=== PATIENT | female | born 1955 | race Caucasian/White ===

== ENCOUNTER → 2019-03-29 17:24 | Outpatient (CLI) | payer MEDICARE, SELFPAY | PROVIDERS: Family Provider Family Medicine; PCP Family Medicine; Referring Provider Podiatrist; Visit Provider Podiatrist | DX: L03.031 Cellulitis of right toe (principal) | CPT/HCPCS: 87070; 87075; 87077; 87186; 87205 ==

== ENCOUNTER → 2019-06-11 15:27 | Outpatient (CLI) | payer MEDICARE, SELFPAY ==
[2019-06-11 14:06] VITALS: BMI 37.6
--- NOTE | 2019-06-11 15:31 | RAD_ITS ---
STUDY: X-RAY CHEST REASON FOR EXAM: Female, 63 years old. Chest pain. TECHNIQUE: Frontal and lateral views of the chest. COMPARISON: February 06, 2015 FINDINGS: Stable mild hyperexpansion. There is no demonstrated pleural abnormality. Cardiomegaly unchanged. Normal mediastinum and david. Normal visualized pulmonary arteries. Normal visualized aortic arch and descending thoracic aorta. Stable thoracolumbar spondylosis. Normal visualized ribs, clavicles, and shoulders. There is no demonstrated abnormality of the visualized soft tissue structures of the upper abdomen. RAD/Chest PA and Lateral IMPRESSION: Stable chest with no acute superimposed finding. Electronically Signed: Supa Bush MD at 17:42 EST , Service support ,
[2019-06-11 17:58] LABS: International Normalized Ratio 1.1; Partial Thromboplast Time 32.7 Seconds (24.1-36.2)
[2019-06-11 18:01] LABS: Absolute Lymphocyte Count 4.36 X10^3/uL (0.83-4.51); Absolute Neutrophil Count 6.4 X10^3/uL (2.0-7.7); Anion Gap 10 (5-15); BUN 18 mg/dL (7-18); BUN/Creat Ratio 14.6 RATIO (10-20); Basophil# 0.13 X10^3/uL; Basophil% 1.1 % (0-1); Calcium,Total 9.7 mg/dL (8.5-10.1); Chloride 106 mmol/L (98-107); Creatinine, Serum 1.23 mg/dL (0.55-1.02); EST Glomerular Filtration Rate 47 mL/min (>60); Eosinophil# 0.58 X10^3/uL; Eosinophils% 4.7 % (0-5); Est Glom Filt Rate - Afr Amer 56 mL/min (>60); Glucose 175 mg/dL (74-106); Hematocrit 39.9 % (37-47); Hemoglobin 12.4 g/dL (12.0-15.0); Lymphocyte # 4.36 X10^3/ul (4.0); Lymphocyte % 35.6 % (19-41); Mean Corp Hgb Conc 31.1 g/dL (32-36); Mean Corpuscular Hgb 28.2 pg (27.0-32.0); Mean Corpuscular Volume 90.7 fL (81-99); Monocyte# 0.72 X10^3/uL; Monocyte% 5.9 % (0-10); NRBC Flagged by Analyzer 0 % (0-5); Neutrophil # 6.43 X10^3/uL (2.7-7.7); Neutrophil % 52.5 % (47-70); Platelet Count 246 K/mm3 (150-450); Potassium 4.4 mmol/L (3.5-5.1); RBC Distribution Width CV 13.3 % (11.6-14.6); RBC Distribution Width SD 44.4 fl (35.1-43.9); Sodium Level 139 mmol/L (136-145); White Blood Count 12.3 K/mm3 (4.4-11.0)
== END ==
PROVIDERS: Family Provider Family Medicine; PCP Family Medicine; Referring Provider Specialist; Visit Provider Specialist
DX: I35.0 Nonrheumatic aortic (valve) stenosis (principal); I25.2 Old myocardial infarction; R07.9 Chest pain, unspecified; I25.110 Atherosclerotic heart disease of native coronary artery with unstable angina pectoris; I11.0 Hypertensive heart disease with heart failure
CPT/HCPCS: 36415; 71046; 80048; 85025; 85610; 85730

== ENCOUNTER → 2019-06-15 13:42 | Outpatient (CLI) | payer MEDICARE, SELFPAY ==
[2019-06-11 14:06] VITALS: BMI 37.6
--- NOTE | 2019-06-15 13:44 | ECHOCS_ITS ---
Reason For Study: Aortic Stenosis Procedure This was a 2D Doppler, Color Flow transthoracic echocardiogram. The study was technically difficult. Contrast injection was performed. Exam performed in department. Left Ventricle Normal LV size. The estimated ejection fraction is 50 %. Diastolic function is indeterminate. apical hypokinesis. Right Ventricle Normal RV size. Normal systolic function. Atria Normal left atrium. Normal right atrium. No doppler evidence for ASD. Mitral Valve There is mild mitral annular calcification. There is no mitral valve stenosis. No mitral valve insufficiency. Tricuspid Valve There is no tricuspid stenosis. Mild tricuspid valve insufficiency. Pulmonary artery systolic pressure is 25 mmHg. Aortic Valve Moderate diffuse aortic valve thickening. Mild aortic stenosis. No aortic valve insufficiency. Pulmonic Valve There is no pulmonic valvular stenosis. Trivial pulmonic valve insufficiency. Great Vessels Normal aortic root. Pericardium/Pleural No pericardial effusion. Medication 22 gauge I.V. with prn adaptor inserted into left arm. Diluted definity 3ml given slow IV push to enhance endocardial definition. MMode/2D Measurements & Calculations LVIDd: 4.7 cm IVSd: 1.5 cm LVOT diam: 2.0 cm LVIDs: 3.0 cm LVPWd: 1.0 cm RVDd: 4.0 cm FS: 36.0 % LVOT area: 3.0 cm2 Ao root diam: 3.4 cm LAV(MOD-bp): 37.7 ml Aortic Valve Planimetry: 0.97 cm2 LA dimension: 4.1 cm LAV(MOD-bp) Indexed: 19.4 ml/m2 LAV(MOD-sp2): 33.4 ml LAV(MOD-sp4): 40.0 ml LA A4 area: 16.5 cm2 RA A4 area: 15.0 cm2 Time Measurements MV dec time: 0.23 sec Doppler Measurements & Calculations MV E max demar: 81.0 cm/sec Lat Peak E' Demar: 5.8 cm/sec Med Peak E' Demar: 5.6 cm/sec MV A max demar: 103.7 cm/sec E/E' lat: 14.0 E/E' med: 14.4 MV E/A: 0.78 MV V2 max: 108.8 cm/sec MV P1/2t max demar: 100.2 cm/sec Ao V2 max: 258.6 cm/sec MV max P.7 mmHg MV P1/2t: 98.6 msec Ao max P.8 mmHg MV V2 mean: 67.4 cm/sec MV dec slope: 297.4 cm/sec2 Ao V2 mean: 169.1 cm/sec MV mean P.1 mmHg Ao mean P.5 mmHg MV V2 VTI: 30.9 cm MVA(P1/2t): 2.2 cm2 Ao V2 VTI: 52.4 cm MVA(VTI): 2.0 cm2 RAMIRO(I,D): 1.2 cm2 RAMIRO(V,D): 1.2 cm2 LV V1 max: 104.6 cm/sec SV(LVOT): 61.5 ml PA V2 max: 107.9 cm/sec LV V1 max P.4 mmHg LV V1 mean P.0 mmHg LV V1 mean: 65.2 cm/sec LV V1 VTI: 20.4 cm TR max demar: 227.7 cm/sec TR max P.7 mmHg Interpretation Summary The estimated ejection fraction is 50 %. Diastolic function is indeterminate. apical hypokinesis Mild tricuspid valve insufficiency. Mild aortic stenosis. Moderate diffuse aortic valve thickening. The study was technically difficult. Diluted definity 3ml given slow IV push to enhance endocardial definition. The study was technically difficult. Ordering Physician: Warren Bruno Referring Physician: Warren Bruno Performed By: Goldy Samayoa [facility]
== END ==
PROVIDERS: Family Provider Family Medicine; PCP Family Medicine; Referring Provider Specialist; Visit Provider Specialist
DX: I35.0 Nonrheumatic aortic (valve) stenosis (principal); I25.10 Atherosclerotic heart disease of native coronary artery without angina pectoris; I10 Essential (primary) hypertension; R01.1 Cardiac murmur, unspecified; I25.2 Old myocardial infarction
CPT/HCPCS: 93306; Q9957; A4216; C8929

== ENCOUNTER 2019-06-21 10:40 | Inpatient (IN) | payer MEDICARE, SELFPAY ==
[2019-06-11 14:06] VITALS: BMI 37.6
[2019-06-20 09:08] VITALS: BMI 38.2
[2019-06-21] VITALS (15 sets, daily range): BP systolic 138–156; BP diastolic 62–76; PULSE 71–87; RESP 14–18; TEMP 36.6–36.7; O2SAT 95–99; BMI 38.2
[2019-06-21] MEDS: 0.9% Normal Saline 1,000 ML 80 ML IV (11:01)
--- NOTE | 2019-06-21 15:39 | PN_ITS ---
Progress Note History of Present Illness 63-year-old female with past medical history of hypertension, diabetes, dyslipidemia, coronary artery disease status post ACS in 2008 that was due to small severely diseased diagonal branch that was treated medically. The diagonal branch was 100% occluded. Her other coronary arteries had mild disease. Patient had been doing well since then till about 4 to 6 months back when she developed chest pain on exertion. The discomfort has been progressive and now with just walking about 50 feet she gets chest discomfort. Patient also had mild aortic stenosis by echo in 2016. Patient underwent coronary angiography which revealed multivessel coronary artery disease and at least moderate aortic stenosis. We are admitting the patient due to the severity of the underlying CAD. She also has been accepted by Dr. Velasquez at [facility] and will be transferred there for CABG and AVR when bed is available. She will get a 2D echo over there. She is currently doing well. Allergies bee pollen Allergy (Verified 06/11/19 14:07) Anaphylaxis Medications Levothyroxine [Synthroid] 100 mcg PO DAILY 10/17/13 [History Confirmed 06/11/19] Metformin HCl [Glucophage] 1,000 mg PO BID 10/17/13 [History Confirmed 06/11/19] Nitroglycerin (INPATIENT USE) [Nitrostat] 0.4 mg SUBLINGUAL Q5M PRN 12/13/13 [History Confirmed 06/11/19] Rosuvastatin Calcium [Crestor] 10 mg PO DAILY 12/13/13 [History Confirmed 06/11/19] Atenolol [Tenormin (beta aviva)] 50 mg PO DAILY 02/14/15 [History Confirmed 06/11/19] Losartan Potassium [Cozaar] 50 mg PO BID 02/14/15 [History Confirmed 06/11/19] Sumatriptan Succinate [Imitrex] 50 mg PO .X1 PRN 03/18/16 [History Confirmed 06/11/19] epinephrine 0.3 mg/0.3 mL injection, auto-injector 0.3 ml IM ONCE PRN 05/31/19 [History Confirmed 06/11/19] fluticasone propionate 50 mcg/actuation nasal spray,suspension 2 spray INTRANASAL DAILY 05/31/19 [History Confirmed 06/11/19] insulin NPH-regular 70-30 U-100 insulin 100 unit/mL subcutaneous pen 45 unit SC QAM ml 05/31/19 [History Confirmed 06/11/19] insulin NPH-regular 70-30 U-100 insulin 100 unit/mL subcutaneous pen 60 unit SC QPM ml 05/31/19 [History Confirmed 06/11/19] naproxen 500 mg tablet 500 mg PO BID PRN 05/31/19 [History Confirmed 06/11/19] nystatin-triamcinolone 100,000 unit/gram-0.1 % topical ointment 1 applic TOPICAL BID PRN 05/31/19 [History Confirmed 06/11/19] omeprazole 20 mg capsule,delayed release 20 mg PO DAILY 05/31/19 [History Confirmed 06/11/19] triamcinolone acetonide 0.1 % topical cream 1 applic TOPICAL BID 05/31/19 [History Confirmed 06/11/19] ergocalciferol (vitamin D2) 50,000 unit capsule 50,000 unit PO QWEEK 06/11/19 [History Confirmed 06/11/19] [facility] Medical History CKD (chronic kidney disease), stage III (Chronic) Hyperlipidemia (Chronic) Atherosclerosis of coronary artery of [place] heart without angina pectoris (Chronic) Essential hypertension (Chronic) Diabetic foot infection (Resolved) Staph aureus infection (Suspected) Osteomyelitis (Resolved) Breast cancer (Chronic) Neuropathy (Chronic) History of MO (myocardial infarction) (Chronic) History of anxiety (Chronic) History of diabetic retinopathy (Chronic) History of migraine headaches (Chronic) History of vitamin D deficiency (Chronic) Hypothyroidism (Chronic) Obesity (Chronic) Type 2 diabetes mellitus without complication (Chronic) Surgical History 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) History of section (Resolved) History of cholecystectomy (Resolved) History of colonoscopy (Resolved ~06/15/17) History of esophagogastroduodenoscopy (EGD) (Resolved ~06/15/17) History of partial mastectomy of right breast (Resolved ~2009) History of repair of ACL (Resolved) Family History Mother CAD (coronary artery disease) Diabetes Father CAD (coronary artery disease) Sister CAD (coronary artery disease) COPD (chronic obstructive pulmonary disease) Social History (Updated 06/11/19 @ 15:08 by Warren Bruno MD) Smoking Status: Never smoker second hand exposure: Yes alcohol intake: current alcohol intake frequency: holidays/special occasions only Alcohol type: wine substance use type: does not use caffeine: Yes Type: coffee Number of servings: 2 ROS Const Const: Positive for fatigue and weakness; negative for headache(s), frequent falls, difficulty sleeping or excessive sweating Eyes Eyes: Negative for loss of peripheral vision, transient loss of vision, blurry vision, double vision or tunnel vision ENT ENT: Positive for balance problems; negative for headache(s), dizziness or Nosebleed/epistaxis Cardio Chest Pain: Yes Frequency: daily Character: tightness, other (heaviness) Onset: other (activity) Location: mid sternal Duration: hours Relieving: rest, other (nitro) Palpitations: No Edema: None Muscle aches with walking: None Resp Respiratory: Positive for SOB with activity; negative for SOB at rest, SOB orthopnea\SOB lying down, Cough or paroxysmal nocturnal dyspnea GI GI: Negative nausea, vomiting, heartburn or black,tarry stools : Negative for hematuria Musc Musc: Positive for joint pain and balance problems; negative for muscle aches/ myalgia or muscle weakness Skin Skin: Negative non-healing lesions, rash or unusual bruising Neuro Neuro: Positive for lightheadedness, weakness and vertigo; negative for dizziness, near syncope, syncope, frequent falls, headache(s), blurry vision, double vision or lack of coordination Josias Hematologic/Lymphatic: Negative for easy bleeding or easy bruising Endo Endo: Positive for fatigue; negative for excessive sweating or increased thirst/drinking Psych Psych: Negative for anxiety or depression Allergy Allergy/Immunology: Negative for hives, Negative for rash Cardiology Exam Const Appearance: cooperative; negative acute distress Nutritional Appearance: well nourished Head Head: normocephalic and atraumatic Ears: hearing grossly normal bilaterally Nose: external nose normal Face and Sinus: face symmetric Mouth: moist mucous membranes Teeth and gingiva: fair dentition Eyes General: appearance normal, both eyes and all related structures Eyelids: eyelids normal Conjunctivae: conjunctivae normal Neck Neck: trachea midline and no JVD Chest Chest inspection: symmetric chest movement; negative pursed lip breathing Auscultation: Bilateral: Clear to Auscultation Cardio Rate: regular rate Rhythm: regular rhythm Heart sounds: S1 normal and diminished A2 Murmur: Grade 3/6 and holosystolic GI GI: normal to inspection Neuro General: alert, awake and oriented x3 Gait: Negative ataxic Skin Skin: no rashes or lesions noted; negative atrophy or jaundice Extremities Pulses: Normal: Right Posterior Tibial Pulse, Left Posterior Tibial Pulse Lower Extremity Edema: None: Bilateral Musculoskel Musculoskeletal: No joint tenderness Psych Psychological: normal affect Assessment & Plan 1. Coronary artery disease involving [place] coronary artery of [place] heart with unstable angina pectoris I25.110 Plan Multivessel coronary artery disease. We will refer her for CABG. 2. Aortic valve stenosis, etiology of cardiac valve disease unspecified I35.0 2D echo will be checked at [facility]. Patient will likely need aVR as well. She has at least moderate attic stenosis by pullback gradient on cath. 3. Hyperlipidemia, unspecified hyperlipidemia type E78.5 Plan Continue Crestor. 4. Essential hypertension I10 Plan Continue present management. STROKE Vital Signs/Narrative: Vital Signs Pulse Resp BP Pulse Ox 06/21/19 12:10 78 16 156/74 H 99 06/21/19 11:59 80 06/21/19 11:45 81 16 156/67 H 99
--- NOTE | 2019-06-21 16:07 | CL.D_ITS ---
Patient Name: ABE SARAVIA Study Date: 06/21/2019 Performing: Jordy Bruno MD Ht: 62 inches 157 cm : 1955 Wt: 205.7 lbs 93.16 kg Age: 63 Gender: female BSA: 1.93 PROCEDURE(S) PERFORMED [id number]/COR/LV CLINICAL PROFILE AND INDICATIONS Indications: Worsening Angina Heart Failure: None Stress/Imaging Stress/Image Study Performed: No CAD Presentations: Unstable angina. CONCLUSIONS Multivessel CAD. Probably moderate . EF is around 40%. RECOMMENDATIONS Surgery consult for coronary revascularization and AVR DESCRIPTION OF PROCEDURE The patient arrived to the procedure lab. The risks and benefits of the procedure as well as a full d escription of our services here and current unavailability of surgical backup were fully explained to the patient and/or their significant other prior to the catheterization. The Timeout was completed, verifying the correct patient and procedure. The patient's procedural site was prepped and draped in the usual fashion. Local anesthetic was given subcutaneously to right radial region with Lidocaine 2% . Using a modified Seldinger technique, arterial access was obtained via the right radial artery, a 6 Fr sheath was inserted. Left Coronary Artery selective angiography was performed in multiple views u sing a 5 Fr. JL3.5 catheter. Left Ventriculography was performed in LÓPEZ projection using a 5 Fr. JR 4 . LV to AO pullback pressures were then recorded. Right Coronary Artery selective angiography was the n performed in multiple views using a 5 Fr. JR 4 catheter.The arterial sheath was pulled and a TR Band was applied for hemostasis CORONARY ANGIOGRAPHY DOMINANCE: Left Dominant LEFT HEART ASSESSMENT Left Ventricular Ejection Fraction: by LV Gram 40 % Anterolateral Hypokinesis - Moderate LEFT MAIN: Angiographically normal LEFT ANTERIOR DESCENDING ARTERY: PROX LAD: 60 % Stenosis MID LAD: 99 % Stenosis DIAGONAL 1: Ostial - 90 % Stenosis DIAGONAL 2: Proximal - is occluded CIRCUMFLEX ARTERY: DISTAL CIRC: 80 % Stenosis OM 1: Proximal - 80 % Stenosis, Distal - 70 % Stenosis RIGHT CORONARY ARTERY: PROX RCA: 90 % Stenosis VALVE FINDINGS: Aortic Valve Stenosis - moderate No Mitral Insufficency COMPLICATIONS No Complications PROCEDURE MEDICATIONS Fentanyl 50 mcg IV Versed 1 mg IV Oxygen: 2 L/min via nasal cannula Heparin given IA 06/21/2019 09:47:59 Verapamil 2.5mg, Ntg 100mcgs, 3000 units of Heparin given IA 06/21/2019 09:47:59 SUMMARY OF HEMODYNAMIC DATA Time AIR REST ECG 09:06:58 AO 100/57 (75) SA 09:51:07 LV 156/-9, 17 10:01:45 LV 156/-8, 17 10:01:51 LV 147/0, 25 10:03:22 LV 154/-3, 30 10:03:41 LVp 156/-3, 26 10:03:51 AOp 130/57 (85) 10:03:56 Signed By Jordy Bruno MD On 06/21/2019 16:07:18 Jordy Bruno MD
[2019-06-21 17:46] LABS: Bedside Glucose 158 mg/dL (70-110)
[2019-06-21] MEDS: Insulin Human 75/25 Kwickpen 60 UNIT SC (21:15)
[2019-06-21] MEDS: Losartan Potassium 50 MG Tablet PO (21:16)
[2019-06-21] MEDS: Atorvastatin Calcium 20 MG Tablet PO (21:16)
[2019-06-21 22:00] LABS: Bedside Glucose 298 mg/dL (70-110)
[2019-06-22 03:00] VITALS: PULSE 76
[2019-06-22 03:05] VITALS: BP 135/50; PULSE 77; RESP 18; TEMP 36.6; O2SAT 95
[2019-06-22] MEDS: Levothyroxine 100 MCG Tablet PO (05:34)
[2019-06-22] MEDS: Losartan Potassium 50 MG Tablet PO (08:48)
[2019-06-22] MEDS: Pantoprazole Sodium 20 MG Tablet PO (08:48)
[2019-06-22] MEDS: Atenolol 50 MG Tablet PO (08:49)
[2019-06-22] MEDS: Insulin Human 75/25 Kwickpen 45 UNIT SC (08:49)
[2019-06-22 09:05] VITALS: BP 147/71; PULSE 82; RESP 16; TEMP 36.6; O2SAT 97
[2019-06-22 15:00] VITALS: BP 137/73; PULSE 82; RESP 18; TEMP 36.6; O2SAT 97
[2019-06-22 15:14] VITALS: PULSE 82
--- NOTE | 2019-06-22 15:22 | NURSING ---
attempted to call nadira perez, to give update on tx. no answer. left vm with this RN extension
--- NOTE | 2019-06-22 15:23 | NURSING ---
verbal report given to OLGA silverman at [facility]
--- NOTE | 2019-06-22 16:58 | PCM.PN.BLA ---
Progress Note Patient has been doing fairly well overnight. She does get chest discomfort with ambulation. She is awaiting transfer to [facility]. STROKE Vital Signs/Narrative: Vital Signs Temp Pulse Resp BP Pulse Ox 06/22/19 15:14 82 06/22/19 15:00 97.9 F 82 18 137/73 H 97
== END 2019-06-22 17:00 | disposition short-term general hospital (02) | DRG 287 ==
LOC: PCU 16:15
PROVIDERS: Admitting Provider Specialist; Family Provider Family Medicine; PCP Family Medicine; Referring Provider Specialist; Visit Provider Specialist
DX: I25.110 Atherosclerotic heart disease of native coronary artery with unstable angina pectoris (principal); E78.5 Hyperlipidemia, unspecified; I10 Essential (primary) hypertension; I35.0 Nonrheumatic aortic (valve) stenosis; Z77.22 Contact with and (suspected) exposure to environmental tobacco smoke (acute) (chronic)
CPT/HCPCS: 82962; 93458; 99152; 99153; J7030; J7040; C1769; C1894; Q9967

== ENCOUNTER → 2019-08-22 | Outpatient (CLI) | payer MEDICARE, SELFPAY ==
[2019-08-21 10:59] VITALS: BMI 37.6
== END | disposition home or self-care (01) ==
PROVIDERS: PCP Family Medicine; Referring Provider Podiatrist; Visit Provider Podiatrist
DX: L03.031 Cellulitis of right toe (principal)
CPT/HCPCS: 87070; 87075; 87077; 87186; 87205

== ENCOUNTER → 2020-12-19 10:09 | Outpatient (CLI) | payer MEDICARE, SELFPAY ==
[2020-12-19 08:52] VITALS: BMI 43.5
[2020-12-19 11:56] LABS: Anion Gap 7 (5-15); BUN 18 mg/dL (7-18); BUN/Creat Ratio 14.1 RATIO (10-20); Calcium,Total 9.3 mg/dL (8.5-10.1); Chloride 104 mmol/L (98-107); Creatinine, Serum 1.28 mg/dL (0.55-1.02); EST Glomerular Filtration Rate 44 mL/min (>60); Est Glom Filt Rate - Afr Amer 54 mL/min (>60); Glucose 175 mg/dL (74-106); Potassium 4.2 mmol/L (3.5-5.1); Sodium Level 138 mmol/L (136-145)
[2020-12-19 11:57] LABS: BNP,B-Type NATRIURETIC PEPTIDE 549.9 pg/mL (0-100)
== END ==
PROVIDERS: PCP Family Medicine; Referring Provider Nurse Practitioner Family; Visit Provider Nurse Practitioner Family
DX: E78.5 Hyperlipidemia, unspecified (principal); R06.00 Dyspnea, unspecified; I10 Essential (primary) hypertension; I35.0 Nonrheumatic aortic (valve) stenosis; I48.91 Unspecified atrial fibrillation; Z95.1 Presence of aortocoronary bypass graft; Z98.890 Other specified postprocedural states
CPT/HCPCS: 36415; 80048; 83880

== ENCOUNTER → 2020-12-26 10:53 | Outpatient (CLI) | payer MEDICARE, SELFPAY ==
[2020-12-19 08:52] VITALS: BMI 43.5
--- NOTE | 2020-12-26 10:56 | ECHOCS_ITS ---
Reason For Study: Dyspnea/SOB Procedure This was a 2D Doppler, Color Flow transthoracic echocardiogram. The study was technically difficult. Contrast injection was performed. Exam performed in department. Left Ventricle Normal LV size. Left ventricular systolic function is normal. The estimated ejection fraction is 60 %. Stage 2 diastolic dysfunction. No regional wall motion abnormalities noted. Right Ventricle Normal RV size. Normal systolic function. Atria Normal left atrium. Normal right atrium. Mitral Valve There is mild mitral annular calcification. Mild (1+) mitral valve insufficiency. Tricuspid Valve Normal tricuspid valve. Mild (1+) tricuspid valve insufficiency. Pulmonary artery systolic pressure is 35 mmHg. Aortic Valve Trisinus/trileaflet aortic valve. Moderate focal aortic valve calcification. Peak aortic valve gradient 41 mmHg. Mean aortic valve gradient 21 mmHg. Moderate aortic stenosis. Calculated aortic valve area (continuity equation) is 1.1 cm2. Pulmonic Valve Normal pulmonic valve. Great Vessels Normal aortic root. The pulmonary artery is normal size. Normal inferior vena cava. Pericardium/Pleural No pericardial effusion. Medication 22 gauge I.V. with prn adaptor inserted into left arm. Diluted definity 2ml given slow IV push to enhance endocardial definition. MMode/2D Measurements & Calculations LVIDd: 4.9 cm IVSd: 1.1 cm LVOT diam: 2.0 cm LVIDs: 2.9 cm LVPWd: 1.1 cm FS: 40.8 % LVOT area: 3.1 cm2 LA dimension: 4.9 cm LAV(MOD-bp): 57.9 ml LA A4 area: 20.9 cm2 LAV(MOD-bp) Indexed: 28.1 ml/m2 LAV(MOD-sp2): 50.1 ml LAV(MOD-sp4): 59.3 ml RA A4 area: 13.7 cm2 Time Measurements MV dec time: 0.22 sec Doppler Measurements & Calculations MV E max demar: 130.9 cm/sec Lat Peak E' Demar: 11.1 cm/sec Med Peak E' Demar: 4.8 cm/sec MV A max demar: 71.8 cm/sec E/E' lat: 11.8 E/E' med: 27.0 MV E/A: 1.8 MV V2 max: 125.5 cm/sec MV P1/2t max demar: 127.5 cm/sec Ao V2 max: 320.1 cm/sec MV max P.3 mmHg MV P1/2t: 115.1 msec Ao max P.1 mmHg MV V2 mean: 63.8 cm/sec MV dec slope: 324.5 cm/sec2 Ao V2 mean: 214.4 cm/sec MV mean P.0 mmHg Ao mean P.2 mmHg MV V2 VTI: 43.2 cm MVA(P1/2t): 1.9 cm2 Ao V2 VTI: 72.5 cm MVA(VTI): 1.9 cm2 RAMIRO(I,D): 1.1 cm2 RAMIRO(V,D): 1.1 cm2 LV V1 max: 118.3 cm/sec SV(LVOT): 80.7 ml PA V2 max: 131.9 cm/sec LV V1 max P.6 mmHg LV V1 mean P.8 mmHg LV V1 mean: 77.5 cm/sec LV V1 VTI: 26.0 cm TR max demar: 278.8 cm/sec TR max P.1 mmHg ECHO/Echo Complete W/ Contrast Interpretation Summary Normal LV size. Left ventricular systolic function is normal. The estimated ejection fraction is 60 %. Stage 2 diastolic dysfunction. Moderate aortic stenosis. Moderate focal aortic valve calcification. Contrast injection was performed. Ordering Physician: Elijah Zapata Referring Physician: MD Tom Jeffery Performed By: Goldy Samayoa RCS
== END ==
PROVIDERS: PCP Family Medicine; Referring Provider Nurse Practitioner Family; Visit Provider Nurse Practitioner Family
DX: I25.10 Atherosclerotic heart disease of native coronary artery without angina pectoris (principal)
CPT/HCPCS: 93306; Q9957; A4216; C8929; J3490

== ENCOUNTER 2021-02-04 12:00 | Emergency (ER) | payer MEDICARE, SELFPAY ==
[2021-01-16 13:35] VITALS: BMI 44.8
[2021-02-04 12:00] VITALS: BP 171/69; PULSE 57; RESP 18; TEMP 36.6; O2SAT 97; BMI 45.7
--- NOTE | 2021-02-04 12:27 | EKG12_ITS ---
Test Reason : SOB Blood Pressure : / mmHG Vent. Rate : 052 BPM Atrial Rate : 052 BPM P-R Int : 218 ms QRS Dur : 134 ms QT Int : 486 ms P-R-T Axes : 037 -48 096 degrees QTc Int : 451 ms Sinus bradycardia with 1st degree A-V block Left axis deviation Right bundle branch block Left ventricular hypertrophy with repolarization abnormality Abnormal ECG Confirmed by LEANNE GUTIÉRREZ, ELEAZAR ([id number]), scientific publications editor FILI GERARDO ([id number]) on 02/06/2021 10:50:58 AM Referred By: RADHA Confirmed By:ELEAZAR PERDOMO MD
--- NOTE | 2021-02-04 12:27 | RAD_ITS ---
STUDY: X-RAY CHEST REASON FOR EXAM: Female, 65 years old. Dyspnea TECHNIQUE: Single AP portable view of the chest. COMPARISON: Comparison is made with prior study dated 06/11/2019. FINDINGS: EKG electrodes are seen. There is evidence of vascular congestion and mild CHF. There is no demonstrated pleural abnormality. Sternal cerclage wires are present from a prior sternotomy. Mild cardiomegaly. Normal mediastinum and david. Normal visualized pulmonary arteries. There is atherosclerotic calcification of the aortic arch with tortuosity. Normal visualized thoracic spine. There is degenerative osteoarthritis of the bilateral shoulders. There is no demonstrated abnormality of the visualized soft tissue structures of the upper abdomen. RAD/Chest 1 View (Portable) IMPRESSION: Mild cardiomegaly and CHF. Electronically Signed: Chris Corral MD at 13:55 EDT , Service support ,
[2021-02-04 12:42] VITALS: O2SAT 94
[2021-02-04 12:53] LABS: Absolute Lymphocyte Count 1.03 X10^3/uL (0.83-4.51); Absolute Neutrophil Count 5.4 X10^3/uL (2.0-7.7); Basophil# 0.07 X10^3/uL; Eosinophil# 0.25 X10^3/uL; Eosinophils% 3.4 % (0-5); Hematocrit 38.2 % (37-47); Hemoglobin 11.5 g/dL (12.0-15.0); Lymphocyte # 1.03 X10^3/ul (0.83-4.51); Lymphocyte % 14.1 % (19-41); Mean Corp Hgb Conc 30.1 g/dL (32-36); Mean Corpuscular Hgb 27.3 pg (27.0-32.0); Mean Corpuscular Volume 90.7 fL (81-99); Mean Platelet Vol. 12.5 fl (6.2-12.0); Monocyte# 0.53 X10^3/uL; Monocyte% 7.3 % (0-10); NRBC Flagged by Analyzer 0 % (0-5); Neutrophil # 5.37 X10^3/uL (2.7-7.7); Neutrophil % 73.7 % (47-70); Platelet Count 201 K/mm3 (150-450); RBC Distribution Width CV 16.1 % (11.6-14.6); RBC Distribution Width SD 53.6 fl (35.1-43.9); Red Blood Count 4.21 M/mm3 (4.2-5.4); White Blood Count 7.3 K/mm3 (4.4-11.0)
[2021-02-04 13:06] LABS: Anion Gap 8 (5-15); BUN 22 mg/dL (7-18); BUN/Creat Ratio 15.3 RATIO (10-20); Calcium,Total 9.3 mg/dL (8.5-10.1); Chloride 104 mmol/L (98-107); Creatinine, Serum 1.44 mg/dL (0.55-1.02); EST Glomerular Filtration Rate 39 mL/min (>60); Est Glom Filt Rate - Afr Amer 47 mL/min (>60); Estimated Creatinine Clearance 29.98 ml/min; Glucose 150 mg/dL (74-106); Potassium 4.2 mmol/L (3.5-5.1); Sodium Level 138 mmol/L (136-145); Troponin-I HS 23.9 pg/mL (3.0-53.7)
[2021-02-04 13:09] LABS: BNP,B-Type NATRIURETIC PEPTIDE 436.2 pg/mL (0-100)
--- NOTE | 2021-02-04 13:22 | EDS_ITS ---
HPI History of Present Illness Chief Complaint: General Illness Narrative Narrative: 65-year-old female presenting with shortness of breath. She states is been going on for about 6 months. She states she has a history of atrial fibrillation and is anticoagulated on Eliquis. She has a history of CABG, aortic stenosis, CKD, hypertension. Patient states that she has seen her primary care for this. She has had outpatient echocardiogram which was normal. Patient states that she does have to sit up in bed at night to sleep but she states it is not because she is orthopneic. She does have dyspnea on exertion. She denies fever, chills, cough. She does state that she noted today prior to coming that she had some mild right breast pain underneath her right breast. She did not notice this before today. Patient states she has history of breast cancer in the past. [facility] Medical History Aortic stenosis Atherosclerosis of coronary artery of [place] heart without angina pectoris Atrial fibrillation with RVR Breast cancer Cervical dystonia CKD (chronic kidney disease), stage III Diabetic foot infection Essential hypertension History of anxiety History of diabetic retinopathy History of [place] (myocardial infarction) History of migraine headaches History of vitamin D deficiency Hyperlipidemia Hypothyroidism Neuropathy Obesity Osteomyelitis Staph aureus infection Type 2 diabetes mellitus without complication Home Medications levothyroxine 100 mcg PO DAILY 10/17/13 [History Last Taken 06/21/19] rosuvastatin 10 mg PO DAILY 12/13/13 [History Last Taken 03/18/16] epinephrine 0.3 mg/0.3 mL injection, auto-injector 0.3 ml IM ONCE PRN 05/31/19 [History Last Taken Unknown] acetaminophen 500 mg tablet 1,000 mg PO TID PRN tab 08/21/19 [History Last Taken Unknown] apixaban 5 mg tablet 5 mg PO BID 08/21/19 [History Last Taken Unknown] aspirin 81 mg chewable tablet 81 mg PO DAILY 08/21/19 [History Last Taken Unknown] insulin glargine 100 unit/mL (3 mL) subcutaneous pen 62 unit SC DAILY ml 08/21/19 [History Last Taken Unknown] insulin lispro 100 unit/mL subcutaneous pen 30 - 35 unit SC QAC ml 08/21/19 [History Last Taken Unknown] metoprolol tartrate 50 mg tablet 75 mg PO Q12H tab 08/21/19 [History Last Taken Unknown] polyethylene glycol 3350 17 gram oral powder packet 17 g PO DAILY PRN 08/21/19 [History Last Taken Unknown] amlodipine 2.5 mg tablet 5 mg PO DAILY #30 tab 01/16/21 [Rx Last Taken Unknown] amiodarone 200 mg PO DAILY 02/04/21 [History Last Taken Unknown] furosemide 20 mg PO DAILY 02/04/21 [History Last Taken Unknown] Allergy/AdvReac Type Severity Reaction Status Date / Time bee pollen Allergy Anaphylaxis Verified 02/04/21 12:03 Family History Mother CAD (coronary artery disease) Diabetes Father CAD (coronary artery disease) Sister CAD (coronary artery disease) COPD (chronic obstructive pulmonary disease) Brother CAD (coronary artery disease) CABG X 3 Surgical History History of section History of cholecystectomy History of colonoscopy (~06/15/17) History of coronary artery bypass graft (06/26/19) History of esophagogastroduodenoscopy (EGD) (~06/15/17) History of left heart catheterization (~06/21/19) History of loop recorder (07/06/19) History of partial mastectomy of right breast (~2009) History of repair of ACL Status post amputation of toe of left foot (~2015) Social History (Reviewed 01/16/21 @ 13:30 by Elijah Zapata WIRE TURNING MACHINE OPERATOR, WIRE TURNING MACHINE OPERATOR-C) Smoking Status: Never smoker second hand exposure: Yes alcohol intake: current alcohol intake frequency: holidays/special occasions only Alcohol type: wine substance use type: does not use caffeine: Yes Type: coffee Number of servings: 2 ROS ROS ED Constitutional Constitutional ED: Denies chills or fever(s) Eyes Eyes: Denies blurry vision or diplopia ENT ENT ED: Denies rhinorrhea or sore throat Cardiovascular Cardiovascular: Reports other Details: Right-sided pain under breast Respiratory/Chest Respiratory/Chest: Reports dyspnea and dyspnea on exertion; Denies cough Gastrointestinal Gastrointestinal: Denies abdominal pain, nausea or vomiting Genitourinary Genitourinary ED: Denies dysuria or hematuria Musculoskeletal Musculoskeletal: Denies arthralgias or myalgias EXAM Physical Exam Const Vital Signs: 02/04/21 12:00 02/04/21 12:21 02/04/21 12:42 Temperature 97.8 F Temperature Source Temporal Pulse Rate 57 L Respiratory Rate 18 Respiratory Effort Short of Breath Respiratory Pattern Normal Blood Pressure 171/69 H Blood Pressure Mean 103 Pulse Ox 97 94 Oxygen Delivery Method Room Air Room Air 02/04/21 14:05 02/04/21 14:36 Temperature Temperature Source Pulse Rate 62 54 L Respiratory Rate 24 H 22 H Respiratory Effort Respiratory Pattern Blood Pressure 153/48 H 130/62 H Blood Pressure Mean 83 Pulse Ox 94 97 Oxygen Delivery Method Room Air Positive obese General Appearance ED: NAD Nutritional Appearance: obese HEENT Negative for trauma Eyes PERRL and EOMs intact bilaterally Chest Wall Chest Narrative: Tenderness to palpation underneath right breast without palpated mass. There are no axillary lymph nodes. Resp normal respiratory effort and clear to auscultation bilaterally Cardio regular rhythm Rate: bradycardia GI normal to inspection, nondistended, normoactive bowel sounds Extremity normal to inspection General Extremety ED: Negative for tenderness Neuro oriented x3 and CN's II-XII intact bilaterally Sensorium / Orientation: alert Psych mental status grossly normal Skin no rashes or lesions noted and no wounds MDM MDM MDM Narrative Medical decision making narrative: Patient presenting with shortness of breath and dyspnea on exertion. She has history of CHF. She recently had an echocardiogram a little over a month ago which showed an EF of 60% and moderate aortic stenosis. She was told by Dr. Feliciano that she would not need anything surgical in the short-term. Patient's BNP is elevated at 436. Troponin is negative at 23.9. Creatinine is slightly elevated 1.44. Patient has no white blood cell count elevation. Hemoglobin macular stable. Patient had EKG which shows a sinus rhythm at 52 bpm with first-degree AV block and right bundle branch block on my interpretation. Chest x-ray on my interpretation shows mild cardiomegaly and CHF. Patient is not hypoxic and is well-appearing. Discussed patient with Dr. Arceo. It does look like in the medical record that her Lasix was recently cut from 40 twice daily to 40 daily on her last cardiology visit. He did recommend increasing this back to 40 twice daily. She was given a dose of 40 Lasix IV in the ED. Patient counseled to call the office tomorrow or the next day for follow-through to see if she is improving. If she has any new or worsening symptoms of concern she should return to the ED. Patient stable for discharge at this time. Impression: 1. CHF 2. Dyspnea Lab Data Labs: Laboratory Results - last 24 hr 02/04/21 02/04/21 02/04/21 12:32 12:32 12:32 WBC 7.3 RBC 4.21 Hgb 11.5 L Hct 38.2 MCV 90.7 MCH 27.3 MCHC 30.1 L RDW Std Deviation 53.6 H RDW Coeff of Ash 16.1 H Plt Count 201 MPV 12.5 H Immature Gran % (Auto) 0.500 Neut % (Auto) 73.7 H Lymph % (Auto) 14.1 L [place] % (Auto) 7.3 Eos % (Auto) 3.4 Baso % (Auto) 1.0 Absolute Neuts (auto) 5.4 Absolute Lymphs (auto) 1.03 Nucleated RBC % 0 Sodium 138 Potassium 4.2 Chloride 104 Carbon Dioxide 26.0 Anion Gap 8 BUN 22 H Creatinine 1.44 H Estim Creat Clear Calc 29.98 Est GFR (MDRD) Af Amer 47 L Est GFR (MDRD) Non-Af 39 L BUN/Creatinine Ratio 15.3 Glucose 150 H Calcium 9.3 Troponin I High Sens 23.9 B-Natriuretic Peptide 436.2 H Radiography Diagnostic Testing: Radiology Impression Chest X-Ray 02/04/21 12:27 IMPRESSION: Mild cardiomegaly and CHF. Electronically Signed: Chris Corral MD at 13:55 EDT , Service support , Discharge Plan Triage Chief Complaint: General Illness ED Provider: Fernando Guadalupe Dx/Rx/DC Orders Instructions: ED Heart Failure, Congestive (CHF) Prescriptions: No Action epinephrine [EpiPen] 0.3 mg/0.3 mL auto-injector 0.3 ml IM ONCE PRN (Reason: allergy) RF: 0 apixaban 5 mg tablet 5 mg PO BID RF: 0 acetaminophen 500 mg tablet 1,000 mg PO TID PRNRF: 0 aspirin 81 mg tablet,chewable 81 mg PO DAILY RF: 0 insulin glargine 100 unit/mL (3 mL) insulin pen 62 unit SC DAILY RF: 0 insulin lispro 100 unit/mL insulin pen 30 - 35 unit SC QAC RF: 0 metoprolol tartrate 50 mg tablet 75 mg PO Q12H RF: 0 polyethylene glycol 3350 17 gram powder in packet 17 g PO DAILY PRN (Reason: Constipation) RF: 0 amlodipine 2.5 mg tablet 5 mg PO DAILY Qty: 30 RF: 11 levothyroxine 100 MCG tablet 100 mcg PO DAILY RF: 0 rosuvastatin 10 MG tablet 10 mg PO DAILY RF: 0 amiodarone 200 mg tablet 200 mg PO DAILY RF: 0 furosemide 20 mg tablet 20 mg PO DAILY RF: 0 Primary Care Provider: Tom Jeffery Referrals: Jimbo Feliciano MD [STAFF PHYSICIAN] - 1 Day Tom Jeffery MD [Primary Care Provider] - Disposition Disposition: Home, Self Care
[2021-02-04 14:05] VITALS: BP 153/48; PULSE 62; RESP 24; O2SAT 94
[2021-02-04] MEDS: Furosemide 40 MG/4 ML Vial IV (14:34)
[2021-02-04 14:36] VITALS: BP 130/62; PULSE 54; RESP 22; O2SAT 97
== END 2021-02-04 14:45 | disposition home or self-care (01) ==
PROVIDERS: Emergency Provider Student in an Organized Health Care Education/Training Program; PCP Family Medicine
DX: I13.0 Hypertensive heart and chronic kidney disease with heart failure and stage 1 through stage 4 chronic kidney disease, or unspecified chronic kidney disease (principal); I50.9 Heart failure, unspecified; E11.22 Type 2 diabetes mellitus with diabetic chronic kidney disease; N18.30 Chronic kidney disease, stage 3 unspecified; I25.10 Atherosclerotic heart disease of native coronary artery without angina pectoris; I48.91 Unspecified atrial fibrillation; E78.5 Hyperlipidemia, unspecified; E03.9 Hypothyroidism, unspecified; E66.9 Obesity, unspecified; Z79.4 Long term (current) use of insulin; Z79.02 Long term (current) use of antithrombotics/antiplatelets; Z79.899 Other long term (current) drug therapy
CPT/HCPCS: 71045; 80048; 83880; 84484; 85025; 93005; 96374; 99285; A4216; J1940

== ENCOUNTER 2021-03-12 19:11 | Inpatient (IN) | payer MEDICARE, SELFPAY ==
[2021-03-12 19:11] VITALS: BP 142/67; PULSE 73; RESP 18; TEMP 36.6; O2SAT 96; BMI 47.2
--- NOTE | 2021-03-12 20:38 | EKG12_ITS ---
Test Reason : Blood Pressure : / mmHG Vent. Rate : 068 BPM Atrial Rate : 068 BPM P-R Int : 218 ms QRS Dur : 148 ms QT Int : 476 ms P-R-T Axes : 030 -48 099 degrees QTc Int : 506 ms Sinus rhythm with 1st degree A-V block Right bundle branch block Left anterior fascicular block Bifascicular block Possible Left ventricular hypertrophy with repolarization abnormality Abnormal ECG Confirmed by LEANNE GUTIÉRREZ, ELEAZAR ([id number]), school photograph editor JOSE ROBERTO BEJARANO ([id number]) on 03/16/2021 10:33:44 AM Referred By: IKE Confirmed By:ELEAZAR PERDOMO MD
--- NOTE | 2021-03-12 20:42 | RAD_ITS ---
STUDY: X-RAY CHEST REASON FOR EXAM: Female, 65 years old. SOB TECHNIQUE: Single AP portable view of the chest. COMPARISON: February 04, 2021 FINDINGS: There is interstitial accentuation of the lungs. There is no demonstrated pleural abnormality. Sternal cerclage wires are present from a prior sternotomy. There is cardiac enlargement. Normal mediastinum and david. Normal visualized pulmonary arteries. Normal visualized aortic arch and descending thoracic aorta. There is demineralization of the osseous structures. Normal visualized ribs, clavicles, and shoulders. There is no demonstrated abnormality of the visualized soft tissue structures of the upper abdomen. RAD/Chest 1 View (Portable) IMPRESSION: Interstitial edema or infiltrate. Electronically Signed: Franklin Larry MD at 21:37 EDT , Service support ,
[2021-03-12 20:46] LABS: Absolute Lymphocyte Count 1.43 X10^3/uL (0.83-4.51); Basophil# 0.06 X10^3/uL; Basophil% 0.8 % (0-1); Eosinophil# 0.31 X10^3/uL; Eosinophils% 4.1 % (0-5); Hematocrit 33.7 % (37-47); Hemoglobin 10.6 g/dL (12.0-15.0); Lymphocyte # 1.43 X10^3/ul (0.83-4.51); Mean Corp Hgb Conc 31.5 g/dL (32-36); Mean Corpuscular Hgb 27.9 pg (27.0-32.0); Mean Corpuscular Volume 88.7 fL (81-99); Mean Platelet Vol. 12.7 fl (6.2-12.0); Monocyte# 0.66 X10^3/uL; Monocyte% 8.8 % (0-10); NRBC Flagged by Analyzer 0 % (0-5); Neutrophil # 5.03 X10^3/uL (2.7-7.7); POSITIVE COUNT YES; Platelet Count 113 K/mm3 (150-450); RBC Distribution Width CV 16.5 % (11.6-14.6); RBC Distribution Width SD 53.8 fl (35.1-43.9); White Blood Count 7.5 K/mm3 (4.4-11.0)
[2021-03-12 20:48] LABS: Differential Indicated SCAN CRITERIA MET
[2021-03-12 21:02] LABS: ALB/GLOB Ratio 0.7 RATIO (0.9-2.4); AST(SGOT) 48 U/L (15-37); Alanine Aminotransfer ALT/SGPT 23 U/L (13-56); Albumin, Serum 3.4 g/dL (3.2-5.0); Alkaline Phosphatase 71 U/L (45-117); Anion Gap 7 (5-15); BUN 23 mg/dL (7-18); BUN/Creat Ratio 15.1 RATIO (10-20); Calcium,Total 9.1 mg/dL (8.5-10.1); Chloride 107 mmol/L (98-107); Creatinine, Serum 1.52 mg/dL (0.55-1.02); EST Glomerular Filtration Rate 36 mL/min (>60); Est Glom Filt Rate - Afr Amer 44 mL/min (>60); Estimated Creatinine Clearance 28.41 ml/min; Globulin 4.8 g/dL (2.2-4.2); Glucose 162 mg/dL (74-106); Potassium 4.6 mmol/L (3.5-5.1); Protein, Total 8.2 g/dL (6.4-8.2); Sodium Level 137 mmol/L (136-145); Troponin-I HS 26 pg/mL (3.0-54.0)
[2021-03-12 21:06] LABS: Differential Comment SCANNED
[2021-03-12 21:28] LABS: Bacteria 0 SEEN /hpf (None Seen); Mucous, Urine 0 SEEN /hpf (<or=2+); Red Blood Cells-Urine 0 SEEN /hpf (0-5)
[2021-03-12 21:46] LABS: Color, Urine Yellow (Yellow); Glucose, Dipstick Normal (Normal); Ketone-Dipstick Negative (Negative); Leukocyte Esterase-Dipstick 25 /ul (Negative); Nitrite-Dipstick Negative (Negative); Occult Blood-Urine Negative /ul (Negative); Protein-Dipstick 30 mg/dl (Negative); Specific Gravity, Urine 1.015 (1.002-1.030); Urine Bilirubin Dipstick Negative (Negative); Urine Clarity Sl. Cloudy (Clear); Urine Urobilinogen Normal (Normal); Urine pH 6.5 (5.0 - 8.0)
[2021-03-12 21:55] LABS: Squamous Epithelial Cells - UA 0-5 SEEN /hpf (5-10); White Blood Cells 5-10 SEEN /hpf (0-5)
--- NOTE | 2021-03-12 22:10 | ED.RN ---
pt thought her blood sugar was low,checked and it was 133.asymptomatic.
[2021-03-12 22:36] LABS: Bedside Glucose 133 mg/dL (70-110)
--- NOTE | 2021-03-12 22:45 | EX.ED.DYSGE1 ---
HPI History of Present Illness Chief Complaint: Edema Narrative Narrative: Patient presents with some shortness of breath, orthopnea and lower extremity edema. She was seen on March 07 was found to have mild CHF and discharged with Lasix. She had a recent echocardiogram last month which showed a normal EF but diastolic heart failure. She also has aortic stenosis. She has no fever chills cough or congestion. [facility] Medical History (Updated 03/12/21 @ 23:[address] Binh Schmid MD) Aortic stenosis Atherosclerosis of coronary artery of [place] heart without angina pectoris Atrial fibrillation with RVR Breast cancer Cervical dystonia CKD (chronic kidney disease), stage III Diabetic foot infection Essential hypertension History of anxiety History of diabetic retinopathy History of [place] (myocardial infarction) History of migraine headaches History of vitamin D deficiency Hyperlipidemia Hypothyroidism Neuropathy Obesity Osteomyelitis Staph aureus infection Type 2 diabetes mellitus without complication Home Medications levothyroxine 100 mcg PO DAILY 10/17/13 [History Last Taken 06/21/19] rosuvastatin 10 mg PO DAILY 12/13/13 [History Last Taken 03/18/16] epinephrine 0.3 mg/0.3 mL injection, auto-injector 0.3 ml IM ONCE PRN 05/31/19 [History Last Taken Unknown] apixaban 5 mg tablet 5 mg PO BID 08/21/19 [History Last Taken Unknown] aspirin 81 mg chewable tablet 81 mg PO DAILY 08/21/19 [History Last Taken Unknown] insulin glargine 100 unit/mL (3 mL) subcutaneous pen 40 unit SC DAILY ml 08/21/19 [History Last Taken Unknown] insulin lispro 100 unit/mL subcutaneous pen 20 unit SC QAC ml 08/21/19 [History Last Taken Unknown] metoprolol tartrate 50 mg tablet 75 mg PO Q12H tab 08/21/19 [History Last Taken Unknown] polyethylene glycol 3350 17 gram oral powder packet 17 g PO DAILY PRN 08/21/19 [History Last Taken Unknown] amlodipine 2.5 mg tablet 5 mg PO DAILY #30 tab 01/16/21 [Rx Last Taken Unknown] furosemide 20 mg PO DAILY 02/04/21 [History Last Taken Unknown] Allergy/AdvReac Type Severity Reaction Status Date / Time bee pollen Allergy Anaphylaxis Verified 03/12/21 19:13 Family History Mother CAD (coronary artery disease) Diabetes Father CAD (coronary artery disease) Sister CAD (coronary artery disease) COPD (chronic obstructive pulmonary disease) Brother CAD (coronary artery disease) CABG X 3 Surgical History History of section History of cholecystectomy History of colonoscopy (~06/15/17) History of coronary artery bypass graft (06/26/19) History of esophagogastroduodenoscopy (EGD) (~06/15/17) History of left heart catheterization (~06/21/19) History of loop recorder (07/06/19) History of partial mastectomy of right breast (~2009) History of repair of ACL Status post amputation of toe of left foot (~2015) Social History (Reviewed 01/16/21 @ 13:30 by Elijah Zapata PRODUCTION TROUBLESHOOTER, PRODUCTION TROUBLESHOOTER-C) Smoking Status: Never smoker second hand exposure: Yes alcohol intake: current alcohol intake frequency: holidays/special occasions only Alcohol type: wine substance use type: does not use caffeine: Yes Type: coffee Number of servings: 2 ROS ROS ED ROS Narrative Past medical history: Reviewed, includes history of A. fib, aortic stenosis, CKD, hyperlipidemia, hypertension, diastolic heart failure Medications: Reviewed Social history: Noncontributory Review of systems: All systems negative except as indicated General: No fever Eyes: No visual changes ENT: No upper airway congestion, normal voice Neck: No neck pain Cardiovascular: No chest pain Respiratory: Dyspnea and orthopnea Gastrointestinal: No abdominal pain, nausea vomiting or diarrhea Genitourinary: No dysuria Musculoskeletal: Denies myalgias no difficulty with ambulation. Lower extremity edema as in HPI Skin: No rash Neurological: No memory loss, confusion or any focal weakness Psych: No recent behavioral changes Hematologic: No easy bleeding or easy bruising EXAM Physical Exam Narrative Exam Narrative: Physical exam General: Well nourished, Well developed, No Acute Distress Head: Normocephalic, Atraumatic Eyes: Conjunctiva not pale ENT: Moist mucous membranes Neck: Supple, Nontender, No lymphadenopathy Cardiovascular: Regular rate, Regular rhythm Respiratory: Coarse bilateral breath sounds no obvious rhonchi. Abdomen: Soft, Nontender, Nondistended Back: Nontender, Normal Inspection. Negative for: CVA tenderness Extremities: Bilateral lower extremity edema without any erythema or calor. This is symmetric. Skin: Normal color, No rash Neurological: Alert, Normal Strength, Normal Sensation Psychological: Normal affect Const Vital Signs: 03/12/21 19:11 Temperature 98 F Temperature Source Temporal Pulse Rate 73 Respiratory Rate 18 Blood Pressure 142/67 H Blood Pressure Mean 92 Pulse Ox 96 Oxygen Delivery Method Room Air MDM MDM MDM Narrative Medical decision making narrative: Patient is found to be in CHF as well as worsening renal function. I talked to Dr. Devon bradley who suggested admission I believe this is quite reasonable IV Lasix was given in the ED. Lab Data Labs: Laboratory Results - last 24 hr 03/12/21 03/12/21 03/12/21 19:50 20:20 20:20 WBC 7.5 RBC 3.80 L Hgb 10.6 L Hct 33.7 L MCV 88.7 MCH 27.9 MCHC 31.5 L RDW Std Deviation 53.8 H RDW Coeff of Ash 16.5 H Plt Count 113 L MPV 12.7 H Immature Gran % (Auto) 0.300 Neut % (Auto) 67.0 Lymph % (Auto) 19.0 [place] % (Auto) 8.8 Eos % (Auto) 4.1 Baso % (Auto) 0.8 Absolute Neuts (auto) 5.0 Absolute Lymphs (auto) 1.43 Nucleated RBC % 0 Differential Comment SCANNED Sodium 137 Potassium 4.6 Chloride 107 Carbon Dioxide 23.0 Anion Gap 7 BUN 23 H Creatinine 1.52 H Estim Creat Clear Calc 28.41 Est GFR (MDRD) Af Amer 44 L Est GFR (MDRD) Non-Af 36 L BUN/Creatinine Ratio 15.1 Glucose 162 H Calcium 9.1 Total Bilirubin 0.60 AST 48 H ALT 23 Alkaline Phosphatase 71 Troponin I High Sens 26 B-Natriuretic Peptide Total Protein 8.2 Albumin 3.4 Globulin 4.8 H Albumin/Globulin Ratio 0.7 L Urine Color Yellow Urine Clarity Sl. Cloudy Urine pH 6.5 Ur Specific [place] 1.015 Urine Protein 30 H Urine Glucose (UA) Normal Urine Ketones Negative Urine Occult Blood Negative Urine Nitrite Negative Urine Bilirubin Negative Urine Urobilinogen Normal Ur Leukocyte Esterase 25 H Urine RBC 0 SEEN Urine WBC 5-10 SEEN Ur Squamous Epith Cells 0-5 SEEN Urine Bacteria 0 SEEN Urine Mucus 0 SEEN POC Glucose 03/12/21 03/12/21 20:20 22:08 WBC RBC Hgb Hct MCV MCH MCHC RDW Std Deviation RDW Coeff of [place] Plt Count MPV Immature Gran % (Auto) Neut % (Auto) Lymph % (Auto) [place] % (Auto) Eos % (Auto) Baso % (Auto) Absolute Neuts (auto) Absolute Lymphs (auto) Nucleated RBC % Differential Comment Sodium Potassium Chloride Carbon Dioxide Anion Gap BUN Creatinine Estim Creat Clear Calc Est GFR (MDRD) Af Amer Est GFR (MDRD) Non-Af BUN/Creatinine Ratio Glucose Calcium Total Bilirubin AST ALT Alkaline Phosphatase Troponin I High Sens B-Natriuretic Peptide 639.0 H Total Protein Albumin Globulin Albumin/Globulin Ratio Urine Color Urine Clarity Urine pH Ur Specific [place] Urine Protein Urine Glucose (UA) Urine Ketones Urine Occult Blood Urine Nitrite Urine Bilirubin Urine Urobilinogen Ur Leukocyte Esterase Urine RBC Urine WBC Ur Squamous Epith Cells Urine Bacteria Urine Mucus POC Glucose 133 H Radiography Diagnostic Testing: Radiology Impression Chest X-Ray 03/12/21 20:42 IMPRESSION: Interstitial edema or infiltrate. Electronically Signed: Franklin Larry MD at 21:37 EDT , Service support , Discharge Plan Triage Chief Complaint: Edema ED Provider: Binh Schmid Dx/Rx/DC Orders Clinical Impression: Diastolic congestive heart failure Prescriptions: No Action epinephrine [EpiPen] 0.3 mg/0.3 mL auto-injector 0.3 ml IM ONCE PRN (Reason: allergy) RF: 0 apixaban 5 mg tablet 5 mg PO BID RF: 0 aspirin 81 mg tablet,chewable 81 mg PO DAILY RF: 0 insulin glargine 100 unit/mL (3 mL) insulin pen 40 unit SC DAILY RF: 0 insulin lispro 100 unit/mL insulin pen 20 unit SC QAC RF: 0 metoprolol tartrate 50 mg tablet 75 mg PO Q12H RF: 0 polyethylene glycol 3350 17 gram powder in packet 17 g PO DAILY PRN (Reason: Constipation) RF: 0 amlodipine 2.5 mg tablet 5 mg PO DAILY Qty: 30 RF: 11 levothyroxine 100 MCG tablet 100 mcg PO DAILY RF: 0 rosuvastatin 10 MG tablet 10 mg PO DAILY RF: 0 furosemide 20 mg tablet 20 mg PO DAILY RF: 0 Primary Care Provider: Tom Jeffery Referrals: Tom Jeffery MD [Primary Care Provider] - Disposition Disposition: Acute Care Hospital [facility]
--- NOTE | 2021-03-12 23:10 | PCM.HP.STD ---
Documented by User: GILLES Pond 03/12/21 23:26 HPI - General General Date of Service: 03/12/21 Chief Complaint: Shortness of breath HPI Narrative ABE SARAVIA, is a 65 F who presents with increasing shortness of breath. Patient states that she has been seen multiple times for similar symptoms. Patient states that she has also had an increase in swelling in her bilateral legs. Patient concerned that she has an infection in her legs however is explained to patient that this swelling is due to her heart failure as there is no redness, warmth. Patient denies fever, chills, chest pain, cough, nausea, vomiting. [facility] Medical History (Updated 03/13/21 @ 00:32 by Finn Segura) Aortic stenosis Atherosclerosis of coronary artery of [place] heart without angina pectoris Atrial fibrillation with RVR Breast cancer Cervical dystonia CKD (chronic kidney disease), stage III Congestive heart failure (CHF) Diabetes Diabetic foot infection Essential hypertension History of anxiety History of diabetic retinopathy History of AL (myocardial infarction) History of migraine headaches History of vitamin D deficiency Hyperlipidemia Hypertension Hyperthyroidism Hypothyroidism Irregular heart beat Neuropathy Obesity Osteomyelitis Rheumatoid arthritis Sleep apnea Staph aureus infection Type 2 diabetes mellitus without complication Home Medications levothyroxine 100 mcg PO DAILY 10/17/13 [History Last Taken 03/12/21 09:00] rosuvastatin 10 mg PO DAILY 12/13/13 [History Last Taken 03/12/21 22:00] epinephrine 0.3 mg/0.3 mL injection, auto-injector 0.3 ml IM ONCE PRN 05/31/19 [History Last Taken Unknown] apixaban 5 mg tablet 5 mg PO BID 08/21/19 [History Last Taken 03/12/21 09:00] aspirin 81 mg chewable tablet 81 mg PO DAILY 08/21/19 [History Last Taken 03/12/21 09:00] insulin glargine 100 unit/mL (3 mL) subcutaneous pen 40 unit SC DAILY ml 08/21/19 [History Last Taken 03/12/21 08:00] insulin lispro 100 unit/mL subcutaneous pen 20 unit SC QAC ml 08/21/19 [History Last Taken Unknown] metoprolol tartrate 50 mg tablet 75 mg PO Q12H tab 08/21/19 [History Last Taken 03/12/21 09:00] polyethylene glycol 3350 17 gram oral powder packet 17 g PO DAILY PRN 08/21/19 [History Last Taken Unknown] amlodipine 2.5 mg tablet 5 mg PO DAILY #30 tab 01/16/21 [Rx Last Taken 03/12/21 09:00] furosemide 20 mg PO BID 02/04/21 [History Last Taken 03/12/21 14:00] Allergy/AdvReac Type Severity Reaction Status Date / Time bee pollen Allergy Anaphylaxis Verified 03/12/21 19:13 Family History Mother CAD (coronary artery disease) Diabetes Father CAD (coronary artery disease) Sister CAD (coronary artery disease) COPD (chronic obstructive pulmonary disease) Brother CAD (coronary artery disease) CABG X 3 Surgical History History of section History of cholecystectomy History of colonoscopy (~06/15/17) History of coronary artery bypass graft (06/26/19) History of esophagogastroduodenoscopy (EGD) (~06/15/17) History of left heart catheterization (~06/21/19) History of loop recorder (07/06/19) History of partial mastectomy of right breast (~2009) History of repair of ACL Status post amputation of toe of left foot (~2015) Social History (Reviewed 01/16/21 @ 13:30 by Elijah Zapata [employer], [employer]) Smoking Status: Never smoker second hand exposure: Yes alcohol intake: current alcohol intake frequency: holidays/special occasions only Alcohol type: wine substance use type: does not use caffeine: Yes Type: coffee Number of servings: 2 ROS Constitutional Constitutional: Denies anorexia, chills, fatigue, fever(s) or weakness Cardiovascular Cardiovascular: Reports edema; Denies chest pain or palpitations Respiratory/Chest Respiratory/Chest: Reports shortness of breath with exertion; Denies cough or shortness of breath at rest Gastrointestinal Gastrointestinal: Denies abdominal pain, constipation, diarrhea, nausea or vomiting Genitourinary Genitourinary: Denies dysuria Musculoskeletal Musculoskeletal: Denies back pain, extremity pain, joint pain or joint stiffness Integumentary Integumentary: Denies dry skin Neurologic Neurologic: Denies abnormal gait, abnormal speech, confusion or dizziness Psychiatric Psychiatric: Denies anxiety or depression Endocrine Endocrinology: Denies change in body appearance Hematologic/Lymphatic Hematologic/Lymphatic: Denies easy bleeding or easy bruising Vital Signs Vital Signs Vital Signs: 03/12/21 19:11 Temperature 98 F Temperature Source Temporal Pulse Rate 73 Respiratory Rate 18 Blood Pressure 142/67 H Blood Pressure Mean 92 Pulse Ox 96 Oxygen Delivery Method Room Air Weight Weight: 258 lb 6.108 oz Body Mass Index (BMI) 47.2 Physical Exam Const alert, oriented x3 and no apparent distress General Appearance: cooperative HEENT normocephalic and head/scalp atraumatic Eyes conjunctivae normal and no scleral icterus Neck supple and no JVD General: trachea midline Resp normal respiratory effort, normal air movement and clear to auscultation bilaterally Cardio regular rate, regular rhythm, S1 normal heart sound and S2 normal heart sound GI normal to inspection, nondistended, normoactive bowel sounds, soft to palpation and non-tender Extremity normal capillary refill General Extremity: edema bilateral lower extremity Details: moderate and no tenderness to palpation of joints or extremities Skin General Skin Exam: no breakdown and turgor normal Lesions: no lesions Rashes: no rashes Neuro no focal motor deficits and no sensory deficits noted Speech: speech normal Motor Exam: Negative for general weakness Psych thought process normal, cooperative and affect normal Appearance: appropriate Results Lab / Micro Data Result Diagrams: 03/12/21 20:20 03/12/21 20:20 Labs: Laboratory Results - last 24 hr 03/12/21 19:50: Urine Color Yellow, Urine Clarity Sl. Cloudy, Urine pH 6.5, Ur Specific [place] 1.015, Urine Protein 30 H, Urine Glucose (UA) Normal, Urine Ketones Negative, Urine Occult Blood Negative, Urine Nitrite Negative, Urine Bilirubin Negative, Urine Urobilinogen Normal, Ur Leukocyte Esterase 25 H, Urine RBC 0 SEEN, Urine WBC 5-10 SEEN, Ur Squamous Epith Cells 0-5 SEEN, Urine Bacteria 0 SEEN, Urine Mucus 0 SEEN 03/12/21 20:20: WBC 7.5, RBC 3.80 L, Hgb 10.6 L, Hct 33.7 L, MCV 88.7, MCH 27.9, MCHC 31.5 L, RDW Std Deviation 53.8 H, RDW Coeff of [place] 16.5 H, Plt Count 113 L, MPV 12.7 H, Immature Gran % (Auto) 0.300, Neut % (Auto) 67.0, Lymph % (Auto) 19.0, [place] % (Auto) 8.8, Eos % (Auto) 4.1, Baso % (Auto) 0.8, Absolute Neuts (auto) 5.0, Absolute Lymphs (auto) 1.43, Nucleated RBC % 0, Differential Comment SCANNED 03/12/21 20:20: Sodium 137, Potassium 4.6, Chloride 107, Carbon Dioxide 23.0, Anion Gap 7, BUN 23 H, Creatinine 1.52 H, Estim Creat Clear Calc 28.41, Est GFR (MDRD) Af Amer 44 L, Est GFR (MDRD) Non-Af 36 L, BUN/Creatinine Ratio 15.1, Glucose 162 H, Calcium 9.1, Total Bilirubin 0.60, AST 48 H, ALT 23, Alkaline Phosphatase 71, Troponin I High Sens 26, Total Protein 8.2, Albumin 3.4, Globulin 4.8 H, Albumin/Globulin Ratio 0.7 L 03/12/21 20:20: B-Natriuretic Peptide 639.0 H 03/12/21 22:08: POC Glucose 133 H Radiology Impression Chest X-Ray 03/12/21 20:42 IMPRESSION: Interstitial edema or infiltrate. Electronically Signed: Franklin Larry MD at 21:37 EDT , Service support , Assessment & Plan Assessment/Plan (1) Acute exacerbation of CHF (congestive heart failure): QUALIFIERS: Heart failure type: diastolic Qualified Code(s): I50.33 - Acute on chronic diastolic (congestive) heart failure PLAN: 1. Acute exacerbation of congestive heart failure -Admit to PCU for observation and cardiac monitoring -Consult cardiology, case discussed with Dr. Feliciano by ER physician -CBC and BMP ordered daily -Will also obtain TSH, mag level. -IV furosemide 40 mg IV twice daily -Trend cardiac enzymes -Daily weights -Strict intake and output -Elevate bilateral lower extremities when in bed or sitting -Encourage I-S -PT OT to eval and treat 2. Hypertension -Continue home medication regimen including Norvasc, metoprolol. -Vital signs per protocol -Blood pressure currently stable 3. Diabetes mellitus type 2 -AC at bedtime sugars with sliding scale insulin ordered -Continue home medication regimen including Lantus and lispro 4. Chronic kidney disease stage IIIb -Upon review of labs patient current values consistent with baseline -BMP daily, trend 5. Hypothyroidism -Continue levothyroxine 6. History of CABG -06/26/2019 DVT prophylaxis-no pharmacological prophylaxis indicated, chronically anticoagulated with Eliquis This patient was seen by GILLES Pond under the supervision of Dr. Becker. Documented by User: Dr. Tracy Becker MD 03/13/21 01:07 HPI - General General Date of Admission: 03/12/21 [facility] Medical History (Updated 03/13/21 @ 00:32 by Finn Segura) Aortic stenosis Atherosclerosis of coronary artery of [place] heart without angina pectoris Atrial fibrillation with RVR Breast cancer Cervical dystonia CKD (chronic kidney disease), stage III Congestive heart failure (CHF) Diabetes Diabetic foot infection Essential hypertension History of anxiety History of diabetic retinopathy History of AL (myocardial infarction) History of migraine headaches History of vitamin D deficiency Hyperlipidemia Hypertension Hyperthyroidism Hypothyroidism Irregular heart beat Neuropathy Obesity Osteomyelitis Rheumatoid arthritis Sleep apnea Staph aureus infection Type 2 diabetes mellitus without complication Home Medications levothyroxine 100 mcg PO DAILY 10/17/13 [History Last Taken 03/12/21 09:00] rosuvastatin 10 mg PO DAILY 12/13/13 [History Last Taken 03/12/21 22:00] epinephrine 0.3 mg/0.3 mL injection, auto-injector 0.3 ml IM ONCE PRN 05/31/19 [History Last Taken Unknown] apixaban 5 mg tablet 5 mg PO BID 08/21/19 [History Last Taken 03/12/21 09:00] aspirin 81 mg chewable tablet 81 mg PO DAILY 08/21/19 [History Last Taken 03/12/21 09:00] insulin glargine 100 unit/mL (3 mL) subcutaneous pen 40 unit SC DAILY ml 08/21/19 [History Last Taken 03/12/21 08:00] insulin lispro 100 unit/mL subcutaneous pen 20 unit SC QAC ml 08/21/19 [History Last Taken Unknown] metoprolol tartrate 50 mg tablet 75 mg PO Q12H tab 08/21/19 [History Last Taken 03/12/21 09:00] polyethylene glycol 3350 17 gram oral powder packet 17 g PO DAILY PRN 08/21/19 [History Last Taken Unknown] amlodipine 2.5 mg tablet 5 mg PO DAILY #30 tab 01/16/21 [Rx Last Taken 03/12/21 09:00] furosemide 20 mg PO BID 02/04/21 [History Last Taken 03/12/21 14:00] Allergy/AdvReac Type Severity Reaction Status Date / Time bee pollen Allergy Anaphylaxis Verified 03/12/21 19:13 Family History Mother CAD (coronary artery disease) Diabetes Father CAD (coronary artery disease) Sister CAD (coronary artery disease) COPD (chronic obstructive pulmonary disease) Brother CAD (coronary artery disease) CABG X 3 Surgical History History of section History of cholecystectomy History of colonoscopy (~06/15/17) History of coronary artery bypass graft (06/26/19) History of esophagogastroduodenoscopy (EGD) (~06/15/17) History of left heart catheterization (~06/21/19) History of loop recorder (07/06/19) History of partial mastectomy of right breast (~2009) History of repair of ACL Status post amputation of toe of left foot (~2015) Social History (Reviewed 01/16/21 @ 13:30 by Elijah Zapata [employer], [employer]) Smoking Status: Never smoker second hand exposure: Yes alcohol intake: current alcohol intake frequency: holidays/special occasions only Alcohol type: wine substance use type: does not use caffeine: Yes Type: coffee Number of servings: 2 Results Lab / Micro Data Result Diagrams: 03/12/21 20:20 03/12/21 20:20
[2021-03-12] MEDS: Furosemide 40 MG/4 ML Vial IV (23:20)
[2021-03-12 23:27] VITALS: BP 159/49; PULSE 80; RESP 24; TEMP 36.2; O2SAT 95
[2021-03-12 23:51] LABS: Magnesium 2.1 mg/dL (1.6-2.6)
[2021-03-13] VITALS (18 sets, daily range): BP systolic 114–159; BP diastolic 58–88; PULSE 64–79; RESP 16–26; TEMP 36.4–36.8; O2SAT 85–98; BMI 46.7
--- NOTE | 2021-03-13 00:04 | PCS.PANDOC ---
PANDEMIC DOCUMENTATION INITIATED: Date: 03/13/2021 Time: 0004
[2021-03-13 01:43] LABS: Troponin-I HS 104 pg/mL (3.0-54.0)
[2021-03-13 04:24] LABS: Troponin-I HS 195 pg/mL (3.0-54.0)
[2021-03-13] MEDS: Levothyroxine 100 MCG Tablet PO (05:22)
--- NOTE | 2021-03-13 05:29 | CPS ---
Patient does not wear a CPAP at home. Does not want to wear one while in hospital for this reason.
--- NOTE | 2021-03-13 05:55 | EKG12_ITS ---
Test Reason : AM EKG Blood Pressure : / mmHG Vent. Rate : 078 BPM Atrial Rate : 078 BPM P-R Int : 270 ms QRS Dur : 120 ms QT Int : 418 ms P-R-T Axes : 062 -47 130 degrees QTc Int : 476 ms Sinus rhythm with 1st degree A-V block Left axis deviation Left ventricular hypertrophy with QRS widening and repolarization abnormality Abnormal ECG When compared with ECG of 04-FEB-2021 12:56, Vent. rate has increased BY 26 BPM Right bundle branch block is no longer Present Confirmed by CAMERON GUTIÉRREZ, UYEN ([id number]), editorial director JOSE ROBERTO BEJARANO ([id number]) on 03/16/2021 9:33:24 AM Referred By: GERSON Confirmed By:UYEN BARNES MD
[2021-03-13 06:49] LABS: Absolute Lymphocyte Count 1.08 X10^3/uL (0.83-4.51); Absolute Neutrophil Count 7.1 X10^3/uL (2.0-7.7); Basophil# 0.07 X10^3/uL; Basophil% 0.8 % (0-1); Eosinophil# 0.07 X10^3/uL; Eosinophils% 0.8 % (0-5); Hematocrit 33.5 % (37-47); Hemoglobin 10.5 g/dL (12.0-15.0); Lymphocyte # 1.08 X10^3/ul (0.83-4.51); Lymphocyte % 12.2 % (19-41); Mean Corp Hgb Conc 31.3 g/dL (32-36); Mean Corpuscular Hgb 28.2 pg (27.0-32.0); Mean Corpuscular Volume 89.8 fL (81-99); Monocyte# 0.52 X10^3/uL; Monocyte% 5.9 % (0-10); NRBC Flagged by Analyzer 0 % (0-5); Neutrophil # 7.09 X10^3/uL (2.7-7.7); Platelet Count 149 K/mm3 (150-450); RBC Distribution Width CV 16.6 % (11.6-14.6); RBC Distribution Width SD 54.8 fl (35.1-43.9); Red Blood Count 3.73 M/mm3 (4.2-5.4); White Blood Count 8.9 K/mm3 (4.4-11.0)
[2021-03-13 07:30] LABS: Troponin-I HS 700 pg/mL (3.0-54.0)
[2021-03-13 07:41] LABS: Anion Gap 8 (5-15); BUN 20 mg/dL (7-18); BUN/Creat Ratio 15.9 RATIO (10-20); Calcium,Total 9.2 mg/dL (8.5-10.1); Chloride 105 mmol/L (98-107); Creatinine, Serum 1.26 mg/dL (0.55-1.02); EST Glomerular Filtration Rate 45 mL/min (>60); Est Glom Filt Rate - Afr Amer 54 mL/min (>60); Estimated Creatinine Clearance 34.27 ml/min; Glucose 153 mg/dL (74-106); Potassium 3.8 mmol/L (3.5-5.1); Sodium Level 139 mmol/L (136-145); Thyroid Stim Hormone (TSH) 1.12 uIU/mL (0.358-3.74)
[2021-03-13] MEDS: Insulin Lispro 100 UNIT/ML INSULN.PEN 20 UNIT SC ×2 (08:20→11:17)
[2021-03-13] MEDS: Insulin Lispro 100 UNIT/ML INSULN.PEN SC ×2 (08:20→11:17)
[2021-03-13 08:31] LABS: Bedside Glucose 170 mg/dL (70-110)
[2021-03-13] MEDS: Aspirin 81 MG TAB.CHEW PO (09:49)
[2021-03-13] MEDS: Furosemide 40 MG/4 ML Vial IV ×2 (09:49→17:09)
[2021-03-13] MEDS: Metoprolol Tartrate 25 MG Tablet 75 MG PO ×2 (09:49→21:25)
[2021-03-13] MEDS: 0.9% Saline Lock 10 ML Syringe IV ×2 (09:49→17:09)
--- NOTE | 2021-03-13 09:49 | CON.PCM.CA_ITS ---
Assessment & Plan Assessment/Plan (1) Diastolic congestive heart failure: PLAN: She does have evidence of diastolic heart failure. Her recent ejection fraction was preserved. I would recommend that we diurese her with intravenous Lasix and see how she does before proceeding to assess her coronary anatomy. I have discussed the above with her she understands and agrees to proceed. (2) History of coronary artery bypass graft: PLAN: She is status post coronary artery bypass surgery with a left internal mammary artery to the left anterior descending artery. Her troponin elevation is likely secondary to her chronic coronary disease. However this may need to be reevaluated to make sure that there is no significant coronary disease which has developed. (3) Aortic stenosis: QUALIFIERS: Cardiac valve disease etiology: etiology unspecified Qualified Code(s): I35.0 - Nonrheumatic aortic (valve) stenosis PLAN: She does have moderate aortic stenosis from an echocardiogram performed recently. Her mean gradient is 21 mmHg. Her ejection fraction is preserved at 60%. I would not recommend that we make any changes at this particular time I do not think that she is a candidate for aortic valve replacement at this time. (4) Essential hypertension: PLAN: Her blood pressure appears to be under good control on the current medical therapy I would not recommend we make any changes at this particular time. (5) Atrial fibrillation with RVR: PLAN: She appears to be maintaining sinus rhythm at this time. I will however recommend we temporarily hold her Eliquis as she may be requiring a cardiac catheterization. I discussed the above with her and the nurse and she understands. HPI Consult Data Date of Consult: 03/13/21 HPI Narrative HPI Narrative: ABE SARAVIA, is a 65 F who presents to the emergency room for the second time in 5 days with dyspnea, pedal edema, redness and swelling of her lower extremities as well as inability to lie flat. She does have a history of hypertension, hyperlipidemia, chronic renal disease, coronary artery disease status post coronary bypass surgery with a left internal mammary artery to the left anterior descending artery. She also has evidence of aortic stenosis which is thought to be moderate. She presented to the emergency room yesterday and after discussion with the emergency room physician it was felt that she needed to be admitted on the basis of worsening congestive heart failure which was not responsive to therapy. EKG demonstrated normal sinus rhythm with no acute changes, her natruretic peptide was elevated and her troponin at that time was normal but has subsequently been markedly elevated suggestive of a non-ST elevation myocardial infarction. She denies any chest discomfort at this time. She did have an echocardiographic evaluation which had demonstrated preserved ejection fraction of 60% in December of this year. Her aortic stenosis was felt to be moderate. She also has a history of atrial fibrillation and an implantable loop recorder and recent interrogation has not demonstrated any evidence of atrial fibrillation. [facility] Medical History Aortic stenosis Atherosclerosis of coronary artery of [place] heart without angina pectoris Atrial fibrillation with RVR Breast cancer Cervical dystonia CKD (chronic kidney disease), stage III Congestive heart failure (CHF) Diabetes Diabetic foot infection Essential hypertension History of anxiety History of diabetic retinopathy History of NE (myocardial infarction) History of migraine headaches History of vitamin D deficiency Hyperlipidemia Hypertension Hyperthyroidism Hypothyroidism Irregular heart beat Neuropathy Obesity Osteomyelitis Rheumatoid arthritis Sleep apnea Staph aureus infection Type 2 diabetes mellitus without complication Home Medications levothyroxine 100 mcg PO DAILY 10/17/13 [History Last Taken 03/12/21 09:00] rosuvastatin 10 mg PO DAILY 12/13/13 [History Last Taken 03/12/21 22:00] epinephrine 0.3 mg/0.3 mL injection, auto-injector 0.3 ml IM ONCE PRN 05/31/19 [History Last Taken Unknown] apixaban 5 mg tablet 5 mg PO BID 08/21/19 [History Last Taken 03/12/21 09:00] aspirin 81 mg chewable tablet 81 mg PO DAILY 08/21/19 [History Last Taken 03/12/21 09:00] insulin glargine 100 unit/mL (3 mL) subcutaneous pen 40 unit SC DAILY ml 08/21/19 [History Last Taken 03/12/21 08:00] insulin lispro 100 unit/mL subcutaneous pen 20 unit SC QAC ml 08/21/19 [History Last Taken Unknown] metoprolol tartrate 50 mg tablet 75 mg PO Q12H tab 08/21/19 [History Last Taken 03/12/21 09:00] polyethylene glycol 3350 17 gram oral powder packet 17 g PO DAILY PRN 08/21/19 [History Last Taken Unknown] amlodipine 2.5 mg tablet 5 mg PO DAILY #30 tab 01/16/21 [Rx Last Taken 03/12/21 09:00] furosemide 20 mg PO BID 02/04/21 [History Last Taken 03/12/21 14:00] Allergy/AdvReac Type Severity Reaction Status Date / Time bee pollen Allergy Anaphylaxis Verified 03/12/21 19:13 Family History Mother CAD (coronary artery disease) Diabetes Father CAD (coronary artery disease) Sister CAD (coronary artery disease) COPD (chronic obstructive pulmonary disease) Brother CAD (coronary artery disease) CABG X 3 Surgical History History of section History of cholecystectomy History of colonoscopy (~06/15/17) History of coronary artery bypass graft (06/26/19) History of esophagogastroduodenoscopy (EGD) (~06/15/17) History of left heart catheterization (~06/21/19) History of loop recorder (07/06/19) History of partial mastectomy of right breast (~2009) History of repair of ACL Status post amputation of toe of left foot (~2015) Social History Smoking Status: Never smoker second hand exposure: Yes alcohol intake: current alcohol intake frequency: holidays/special occasions only Alcohol type: wine substance use type: does not use caffeine: Yes Type: coffee Number of servings: 2 ROS Constitutional Constitutional: Denies fever(s) or weight loss Eyes Eyes: Reports systems reviewed and no addt'l complaints, except as documented ENT HEENT: Reports systems reviewed and no addt'l complaints, except as documented Cardiovascular Cardiovascular: Denies chest pain at rest, chest pain with activity, dyspnea at rest, dyspnea on exertion, edema, palpitations or paroxysmal nocturnal dyspnea Respiratory/Chest Respiratory/Chest: Reports dyspnea on exertion, productive cough, shortness of breath at rest and shortness of breath with exertion Gastrointestinal Gastrointestinal: Denies change in bowel habits, nausea, vomiting or weight changes Genitourinary Genitourinary: Denies difficulty urinating Musculoskeletal Musculoskeletal: Denies joint stiffness or muscle weakness Integumentary Integumentary: Denies lesions Neurologic Neurologic: Denies dizziness or syncope Psychiatric Psychiatric: Denies anxiety Endocrine Endocrinology: Denies excessive sweating or fatigue Hematologic/Lymphatic Hematologic/Lymphatic: Denies anemia Allergic/Immunologic Allergic/Immunologic: Denies seasonal rhinorrhea Physical Exam Const alert and oriented x3 Eyes conjunctivae normal Neck Carotids: normal carotid upstroke Chest inspection of chest normal Resp Auscultation: diminished lung sounds Cardio regular rate Heart Sounds: S1 normal, S2 normal and murmur systolic Extremity General Extremity: edema Neuro oriented x3 Objective Data Vital Signs: Vital Signs Temp Pulse Resp BP Pulse Ox 97.6 F L 79 26 H 150/68 H 91 03/13/21 05:26 03/13/21 07:00 03/13/21 08:10 03/13/21 05:26 03/13/21 07:35 Oxygen Flow Rate (L/min) 2 Oxygen Delivery Method Nasal Cannula Weight: 254 lb 13.67 oz Body Mass Index (BMI) 46.7 Intake & Output: Intake and Output for Last 24 Hours 03/11/21 03/12/21 03/13/21 23:59 23:59 23:59 Intake Total 240 / 240 Output Total 1200 / 1200 Balance -960 / -960 Lab / Micro Data Result Diagrams: 03/13/21 06:30 03/13/21 06:30 Labs: Laboratory Results - last 24 hr 03/12/21 19:50: Urine Color Yellow, Urine Clarity Sl. Cloudy, Urine pH 6.5, Ur Specific [place] 1.015, Urine Protein 30 H, Urine Glucose (UA) Normal, Urine Ketones Negative, Urine Occult Blood Negative, Urine Nitrite Negative, Urine Bilirubin Negative, Urine Urobilinogen Normal, Ur Leukocyte Esterase 25 H, Urine RBC 0 SEEN, Urine WBC 5-10 SEEN, Ur Squamous Epith Cells 0-5 SEEN, Urine Bacteria 0 SEEN, Urine Mucus 0 SEEN 03/12/21 20:20: WBC 7.5, RBC 3.80 L, Hgb 10.6 L, Hct 33.7 L, MCV 88.7, MCH 27.9, MCHC 31.5 L, RDW Std Deviation 53.8 H, RDW Coeff of Ash 16.5 H, Plt Count 113 L, MPV 12.7 H, Immature Gran % (Auto) 0.300, Neut % (Auto) 67.0, Lymph % (Auto) 19.0, [place] % (Auto) 8.8, Eos % (Auto) 4.1, Baso % (Auto) 0.8, Absolute Neuts (auto) 5.0, Absolute Lymphs (auto) 1.43, Nucleated RBC % 0, Differential Comment SCANNED 03/12/21 20:20: Sodium 137, Potassium 4.6, Chloride 107, Carbon Dioxide 23.0, Anion Gap 7, BUN 23 H, Creatinine 1.52 H, Estim Creat Clear Calc 28.41, Est GFR (MDRD) Af Amer 44 L, Est GFR (MDRD) Non-Af 36 L, BUN/Creatinine Ratio 15.1, Glucose 162 H, Calcium 9.1, Total Bilirubin 0.60, AST 48 H, ALT 23, Alkaline Phosphatase 71, Troponin I High Sens 26, Total Protein 8.2, Albumin 3.4, Globulin 4.8 H, Albumin/Globulin Ratio 0.7 L 03/12/21 20:20: B-Natriuretic Peptide 639.0 H 03/12/21 20:20: Magnesium 2.1 03/12/21 22:08: POC Glucose 133 H 03/13/21 01:00: Troponin I High Sens 104 H* 03/13/21 03:28: Troponin I High Sens 195 H* 03/13/21 06:30: WBC 8.9, RBC 3.73 L, Hgb 10.5 L, Hct 33.5 L, MCV 89.8, MCH 28.2, MCHC 31.3 L, RDW Std Deviation 54.8 H, RDW Coeff of Ash 16.6 H, Plt Count 149 L, MPV 12.0, Immature Gran % (Auto) 0.300, Neut % (Auto) 80.0 H, Lymph % (Auto) 12.2 L, [place] % (Auto) 5.9, Eos % (Auto) 0.8, Baso % (Auto) 0.8, Absolute Neuts (auto) 7.1, Absolute Lymphs (auto) 1.08, Nucleated RBC % 0 03/13/21 06:30: Sodium 139, Potassium 3.8, Chloride 105, Carbon Dioxide 26.0, Anion Gap 8, BUN 20 H, Creatinine 1.26 H, Estim Creat Clear Calc 34.27, Est GFR (MDRD) Af Amer 54 L, Est GFR (MDRD) Non-Af 45 L, BUN/Creatinine Ratio 15.9, Glucose 153 H, Calcium 9.2, TSH 1.12 03/13/21 06:30: Troponin I High Sens 700 H* 03/13/21 08:16: POC Glucose 170 H Micro: Microbiology 03/13/21 01:20 Nasal Secretion SARS-CoV-2 Antigen (Rapid) - Final Cardiology Labs/Tests 03/12/21 19:50: Urine Color Yellow, Urine Clarity Sl. Cloudy, Urine pH 6.5, Ur Specific [place] 1.015, Urine Protein 30 H, Urine Glucose (UA) Normal, Urine Ketones Negative, Urine Occult Blood Negative, Urine Nitrite Negative, Urine Bilirubin Negative, Urine Urobilinogen Normal, Ur Leukocyte Esterase 25 H, Urine RBC 0 SEEN, Urine WBC 5-10 SEEN 03/12/21 20:20: WBC 7.5, RBC 3.80 L, Hgb 10.6 L, Hct 33.7 L, MCV 88.7, MCH 27.9, MCHC 31.5 L, Plt Count 113 L, MPV 12.7 H, Immature Gran % (Auto) 0.300, Neut % (Auto) 67.0, Lymph % (Auto) 19.0, [place] % (Auto) 8.8, Eos % (Auto) 4.1, Baso % (Auto) 0.8, Absolute Neuts (auto) 5.0, Nucleated RBC % 0 03/12/21 20:20: Sodium 137, Potassium 4.6, Chloride 107, Carbon Dioxide 23.0, Anion Gap 7, BUN 23 H, Creatinine 1.52 H, Est GFR (MDRD) Af Amer 44 L, Est GFR (MDRD) Non-Af 36 L, BUN/Creatinine Ratio 15.1, Glucose 162 H, Calcium 9.1, Total Bilirubin 0.60 03/12/21 20:20: B-Natriuretic Peptide 639.0 H 03/12/21 20:20: Magnesium 2.1 03/13/21 06:30: WBC 8.9, RBC 3.73 L, Hgb 10.5 L, Hct 33.5 L, MCV 89.8, MCH 28.2, MCHC 31.3 L, Plt Count 149 L, MPV 12.0, Immature Gran % (Auto) 0.300, Neut % (Auto) 80.0 H, Lymph % (Auto) 12.2 L, [place] % (Auto) 5.9, Eos % (Auto) 0.8, Baso % (Auto) 0.8, Absolute Neuts (auto) 7.1, Nucleated RBC % 0 03/13/21 06:30: Sodium 139, Potassium 3.8, Chloride 105, Carbon Dioxide 26.0, Anion Gap 8, BUN 20 H, Creatinine 1.26 H, Est GFR (MDRD) Af Amer 54 L, Est GFR (MDRD) Non-Af 45 L, BUN/Creatinine Ratio 15.9, Glucose 153 H, Calcium 9.2 Rhythm: EKG: ECHO: Stress Test: Cardiac Cath: PCI: CT Surgery: Holter monitor: EPS: PPM: CXR: Chest CT Scan: Radiography Diagnostic Testing: Radiology Impression Chest X-Ray 03/12/21 20:42 IMPRESSION: Interstitial edema or infiltrate. Electronically Signed: Franklin Larry MD at 21:37 EDT , Service support ,
--- NOTE | 2021-03-13 10:32 | CASEMGMT ---
According to the [facility] website, the following are in-network tertiary facilities: [facility], [place], [facility], [facility], [facility], [facility], and . Uma ESPINOZA CM
[2021-03-13] MEDS: ALPRAZolam 0.5 MG Tablet PO (11:16)
[2021-03-13] MEDS: Polyethylene Glycol 3350 17 GM PACKET PO (11:16)
[2021-03-13 11:21] LABS: Bedside Glucose 164 mg/dL (70-110)
--- NOTE | 2021-03-13 13:10 | CASEMGMT ---
OLGA MARMOLEJO assessment: Face to Face with patient for initial transition planning/care coordination assessment. RN FRANCIE introduced self and role at [facility], pt voices understanding and consents to assessment. Pt is sitting up in chair with audible wheezing on 3L nc. Pt is A/Ox4 and answers questions appropriately. Care providers, pharmacy, and demographics verified. Presentation: Pt c/o swelling/open areas to lower extremities, sent by PCP Admitting dx: CHF exac PCP: Latia Specialists: [facility] in [place] Preferred Pharmacy: [facility] Insurance: [facility] Prescription Benefit: [employer]MCR Living Will/HPOA: Pt states does not have LW/HPOA but is interested in completing AD's at this time. Lucille REYNOLDS aware, voices understanding. LNOK: nadira Archer Living Arrangements: Pt states lives with friend in mobile home with 5 steps in and states no concerns at home. Pt states is independent with ADL's. Transportation: Pt states drives self and states no transportation concerns. DME/HHC: Pt states has the following DME: canex2, walker, and grab bars. Pt states no preference for DME company, if home oxygen needed at d/c. Pt states has had HHC in the past but has not been to SNF. Pt states no concerns with going home at time of discharge. Pt is retired. Pt states does not smoke cigarettes or drink ETOH. Pt states no further concerns/needs. CM to follow for home oxygen need, PT/OT evals, and for any further discharge planning/needs. Advised pt to ask for CM if any further questions/concerns/needs arise, voices understanding. Pt Goal: Home Plan Home, pending PT/OT evals and home oxygen testing. [place] OLGA MARMOLEJO
--- NOTE | 2021-03-13 14:15 | PCM.PN.HOSP ---
Documented by User: Ivon Lema NP, MANAGER FUNCTIONAL-C 03/13/21 14:35 Subjective Subjective Patient seen and examined. Reports shortness of breath which she thinks is partially due to anxiety however unable to lie flat due to worsening shortness of breath. Denies chest pain. Reports she continues to have lower extremity swelling. Objective Data Objective Data Vital Signs: Vital Signs Temp Pulse Resp BP Pulse Ox 98.3 F 70 20 H 132/88 H 95 03/13/21 09:48 03/13/21 09:49 03/13/21 09:48 03/13/21 09:48 03/13/21 09:48 Oxygen Flow Rate (L/min) 2 Oxygen Delivery Method Nasal Cannula Weight: 254 lb 13.67 oz Body Mass Index (BMI) 46.7 Intake & Output: Intake and Output for Last 24 Hours 03/11/21 03/12/21 03/13/21 23:59 23:59 23:59 Intake Total 600 / 600 Output Total 1600 / 1600 Balance -1000 / -1000 Lab / Micro Data Result Diagrams: 03/13/21 06:30 03/13/21 06:30 Labs: Laboratory Results - last 24 hr 03/12/21 19:50: Urine Color Yellow, Urine Clarity Sl. Cloudy, Urine pH 6.5, Ur Specific [place] 1.015, Urine Protein 30 H, Urine Glucose (UA) Normal, Urine Ketones Negative, Urine Occult Blood Negative, Urine Nitrite Negative, Urine Bilirubin Negative, Urine Urobilinogen Normal, Ur Leukocyte Esterase 25 H, Urine RBC 0 SEEN, Urine WBC 5-10 SEEN, Ur Squamous Epith Cells 0-5 SEEN, Urine Bacteria 0 SEEN, Urine Mucus 0 SEEN 03/12/21 20:20: WBC 7.5, RBC 3.80 L, Hgb 10.6 L, Hct 33.7 L, MCV 88.7, MCH 27.9, MCHC 31.5 L, RDW Std Deviation 53.8 H, RDW Coeff of Ash 16.5 H, Plt Count 113 L, MPV 12.7 H, Immature Gran % (Auto) 0.300, Neut % (Auto) 67.0, Lymph % (Auto) 19.0, [place] % (Auto) 8.8, Eos % (Auto) 4.1, Baso % (Auto) 0.8, Absolute Neuts (auto) 5.0, Absolute Lymphs (auto) 1.43, Nucleated RBC % 0, Differential Comment SCANNED 03/12/21 20:20: Sodium 137, Potassium 4.6, Chloride 107, Carbon Dioxide 23.0, Anion Gap 7, BUN 23 H, Creatinine 1.52 H, Estim Creat Clear Calc 28.41, Est GFR (MDRD) Af Amer 44 L, Est GFR (MDRD) Non-Af 36 L, BUN/Creatinine Ratio 15.1, Glucose 162 H, Calcium 9.1, Total Bilirubin 0.60, AST 48 H, ALT 23, Alkaline Phosphatase 71, Troponin I High Sens 26, Total Protein 8.2, Albumin 3.4, Globulin 4.8 H, Albumin/Globulin Ratio 0.7 L 03/12/21 20:20: B-Natriuretic Peptide 639.0 H 03/12/21 20:20: Magnesium 2.1 03/12/21 22:08: POC Glucose 133 H 03/13/21 01:00: Troponin I High Sens 104 H* 03/13/21 03:28: Troponin I High Sens 195 H* 03/13/21 06:30: WBC 8.9, RBC 3.73 L, Hgb 10.5 L, Hct 33.5 L, MCV 89.8, MCH 28.2, MCHC 31.3 L, RDW Std Deviation 54.8 H, RDW Coeff of Ash 16.6 H, Plt Count 149 L, MPV 12.0, Immature Gran % (Auto) 0.300, Neut % (Auto) 80.0 H, Lymph % (Auto) 12.2 L, [place] % (Auto) 5.9, Eos % (Auto) 0.8, Baso % (Auto) 0.8, Absolute Neuts (auto) 7.1, Absolute Lymphs (auto) 1.08, Nucleated RBC % 0 03/13/21 06:30: Sodium 139, Potassium 3.8, Chloride 105, Carbon Dioxide 26.0, Anion Gap 8, BUN 20 H, Creatinine 1.26 H, Estim Creat Clear Calc 34.27, Est GFR (MDRD) Af Amer 54 L, Est GFR (MDRD) Non-Af 45 L, BUN/Creatinine Ratio 15.9, Glucose 153 H, Calcium 9.2, TSH 1.12 03/13/21 06:30: Troponin I High Sens 700 H* 03/13/21 08:16: POC Glucose 170 H 03/13/21 11:14: POC Glucose 164 H Micro: Microbiology 03/13/21 01:20 Nasal Secretion SARS-CoV-2 Antigen (Rapid) - Final Radiography Diagnostic Testing: Radiology Impression Chest X-Ray 03/12/21 20:42 IMPRESSION: Interstitial edema or infiltrate. Electronically Signed: Franklin Larry MD at 21:37 EDT , Service support , Physical Exam Const alert, oriented x3 and no apparent distress Orientation / Consciousness: awake, oriented to person, oriented to place and oriented to time HEENT normocephalic and moist oral mucous membranes Eyes PERRL, EOMs intact bilaterally and conjunctivae normal Neck no lymphadenopathy Resp clear to auscultation bilaterally Auscultation: diminished lung sounds Cardio regular rate, regular rhythm and no murmurs Peripheral Pulses: pulses 2+ throughout GI normal to inspection, nondistended, normoactive bowel sounds, non-tender and non-distended Extremity normal to inspection General Extremity: edema bilateral lower extremity Details: moderate (Ralph wraps in place) Skin no rashes or lesions noted Lesions: no lesions Rashes: no rashes Trauma: no lacerations or abrasions Neuro CN's II-XII intact bilaterally, no focal motor deficits, no sensory deficits noted and deep tendon reflexes 2+ bilaterally Psych mental status grossly normal and affect normal Assessment & Plan Assessment/Plan (1) Acute exacerbation of CHF (congestive heart failure): QUALIFIERS: Heart failure type: diastolic Qualified Code(s): I50.33 - Acute on chronic diastolic (congestive) heart failure PLAN: 1. Acute on chronic heart failure with preserved ejection fraction-echocardiogram 12/26/2020 demonstrated an EF of 60%, stage II diastolic dysfunction, moderate aortic stenosis. IV Lasix. Strict I&O. Daily weight. Ralph wraps bilateral lower extremities. Cardiology following. Patient is on supplemental oxygen however not documented to be hypoxic. Wean oxygen as tolerated. 2. Elevated troponin-cardiology following. Anticipate heart cath on Tuesday. Eliquis on hold. 3. CAD with history of CABG-continue medical management. 4. Valvular heart disease with moderate aortic stenosis-recent echo 12/26/2020 demonstrated moderate aortic stenosis. 5. Paroxysmal atrial fibrillation-Eliquis on hold. Continue metoprolol. 6. Type 2 diabetes silzaita-Lbei-Diqui with sliding scale insulin. Continue home insulin regimen. 7. Chronic normocytic anemia-trend CBC 8. Hypertension-stable, continue metoprolol, amlodipine. 9. Hyperlipidemia-continue statin. 10. KAVITA-continue CPAP 11. Hypothyroidism-continue Synthroid regimen. 12. Anxiety/depression-not on regimen. 13. Morbid obesity-encouraged diet and lifestyle modifications. 14. Chronic kidney disease stage IIIa-at baseline, trend BMP. DVT prophylaxis-Eliquis on hold Discharge plan: Plan for heart cath on Tuesday. This patient was seen by GILLES Roberson under the supervision of Dr. Chadwick. Documented by User: Dr. Riki Chadwick MD 03/13/21 16:23 Subjective Subjective Seen and examined. Patient is short of breath, dyspnea at rest and orthopnea. Patient denies history of his smoking or emphysema. Following little better after Lasix. Diuresing well. Objective Data Lab / Micro Data Result Diagrams: 03/13/21 06:30 03/13/21 06:30 Physical Exam Narrative General: Alert, Oriented x3, Cooperative, morbid obese BMI 46.6 kg/m? HEENT: Atraumatic, PERRLA, EOMI, Normocephalic Oral: No Gingival or Mucosal Lesions/ Ulcerations Neck: Supple, No JVD, Negative Carotid Bruits Lungs: Air entry diminished in bilateral lung bases. Bilateral crepitations and wheezing Cardiovascular: Regular rate, Regular Rhythm, Normal S1, Normal S2, ESM over right second ICS with radiation to carotids Abdomen: Bowel Sounds Present, Soft, Non Tender, Non-Distended : No renal angle tenderness. No suprapubic tenderness. Extremities: Bilateral leg edema, Capillary Refill Less than 3 Seconds Skin: No rashes, No breakdown Musculoskeletal: No Tenderness to Palpation of Joints or Extremities Neurological: Cranial nerves II-XII grossly intact, DTR 2+/4 and Symmetrical, Neuro grossly intact Psych/Mental Status: Normal Affect, Appropriate. Assessment & Plan Assessment/Plan (1) Acute exacerbation of CHF (congestive heart failure): QUALIFIERS: Heart failure type: diastolic Qualified Code(s): I50.33 - Acute on chronic diastolic (congestive) heart failure PLAN: This patient was seen in conjunction with Ivon DAVIS. I have independently interviewed and examined the patient and reviewed pertinent history, examination findings, laboratory and plan of management. I have reviewed the note and agree with the documented findings with the few additional points. In brief, patient is a 65-year-old female with history of tachycardia stenosis as per echo 12/26/2020, AV area 1.1 cm?, mean aortic gradient 21.2 mmHg came to ER with acute shortness breath, leg swelling consistent with acute on chronic diastolic heart failure. EF 60%. Patient seen by financial administrative assistant. Coronary artery status post CABG, left internal mammary to LAD at the time of her first MD in 2008. Troponin elevated, consistent with non-STEMI. Plan for cardiac cath on Tuesday. Paroxysmal A. fib, Eliquis on hold. Heart rate is controlled. Other comorbidities as mentioned above I have discussed my assessment with Ivon DAVIS and orders have been reviewed. Charges/Coding Visit Charges Inpatient E&M: 06376 Subs Hosp L2
[2021-03-13] MEDS: Fluticasone 0.05% 1 SPRAY NASAL.SRY 2 SPRAY NASAL (15:25)
[2021-03-13 17:15] LABS: Bedside Glucose 69 mg/dL (70-110)
[2021-03-13] MEDS: Atorvastatin Calcium 20 MG Tablet PO (21:25)
[2021-03-13 21:35] LABS: Bedside Glucose 91 mg/dL (70-110)
[2021-03-14] VITALS (11 sets, daily range): BP systolic 121–125; BP diastolic 56–60; PULSE 56–86; RESP 18; TEMP 36.2–36.9; O2SAT 96–97
[2021-03-14] MEDS: Levothyroxine 100 MCG Tablet PO (05:20)
[2021-03-14 06:33] LABS: Absolute Lymphocyte Count 1.57 X10^3/uL (0.83-4.51); Absolute Neutrophil Count 5.3 X10^3/uL (2.0-7.7); Basophil# 0.07 X10^3/uL; Basophil% 0.9 % (0-1); Eosinophil# 0.13 X10^3/uL; Eosinophils% 1.7 % (0-5); Hematocrit 33.3 % (37-47); Hemoglobin 10.2 g/dL (12.0-15.0); Lymphocyte # 1.57 X10^3/ul (0.83-4.51); Lymphocyte % 20.4 % (19-41); Mean Corp Hgb Conc 30.6 g/dL (32-36); Mean Corpuscular Volume 91.5 fL (81-99); Mean Platelet Vol. 12.4 fl (6.2-12.0); Monocyte# 0.57 X10^3/uL; Monocyte% 7.4 % (0-10); NRBC Flagged by Analyzer 0 % (0-5); Neutrophil # 5.34 X10^3/uL (2.7-7.7); Neutrophil % 69.2 % (47-70); Platelet Count 127 K/mm3 (150-450); RBC Distribution Width CV 16.8 % (11.6-14.6); RBC Distribution Width SD 56.9 fl (35.1-43.9); Red Blood Count 3.64 M/mm3 (4.2-5.4); White Blood Count 7.7 K/mm3 (4.4-11.0)
[2021-03-14 07:04] LABS: Anion Gap 10 (5-15); BUN 24 mg/dL (7-18); BUN/Creat Ratio 18.2 RATIO (10-20); Calcium,Total 8.8 mg/dL (8.5-10.1); Chloride 105 mmol/L (98-107); Creatinine, Serum 1.32 mg/dL (0.55-1.02); EST Glomerular Filtration Rate 43 mL/min (>60); Est Glom Filt Rate - Afr Amer 52 mL/min (>60); Estimated Creatinine Clearance 32.71 ml/min; Glucose 104 mg/dL (74-106); Potassium 3.8 mmol/L (3.5-5.1); Sodium Level 137 mmol/L (136-145)
[2021-03-14] MEDS: Fluticasone 0.05% 1 SPRAY NASAL.SRY 2 SPRAY NASAL (07:56)
[2021-03-14] MEDS: Aspirin 81 MG TAB.CHEW PO (07:57)
[2021-03-14] MEDS: Metoprolol Tartrate 25 MG Tablet 75 MG PO ×2 (07:57→21:22)
[2021-03-14] MEDS: Furosemide 40 MG/4 ML Vial IV ×2 (08:01→17:15)
--- NOTE | 2021-03-14 09:58 | PN.CARD_ITS ---
Subjective Subjective Patient seen and evaluated. Says that she is breathing better. Sitting in a chair. Objective Data Vital Signs: Vital Signs Temp Pulse Resp BP Pulse Ox 97.9 F 67 18 125/60 H 97 03/14/21 09:30 03/14/21 09:30 03/14/21 09:30 03/14/21 09:30 03/14/21 09:30 Oxygen Flow Rate (L/min) 2 Oxygen Delivery Method Room Air Weight: 254 lb 13.67 oz Body Mass Index (BMI) 46.7 Intake & Output: Intake and Output for Last 24 Hours 03/12/21 03/13/21 03/14/21 23:59 23:59 23:59 Intake Total 850 / 1090 420 / 420 Output Total 1600 / 1600 Balance -750 / -510 420 / 420 Lab / Micro Data Result Diagrams: 03/14/21 06:00 03/14/21 06:00 Labs: Laboratory Results - last 24 hr 03/13/21 11:14: POC Glucose 164 H 03/13/21 17:04: POC Glucose 69 L 03/13/21 21:24: POC Glucose 91 03/14/21 06:00: WBC 7.7, RBC 3.64 L, Hgb 10.2 L, Hct 33.3 L, MCV 91.5, MCH 28.0, MCHC 30.6 L, RDW Std Deviation 56.9 H, RDW Coeff of Ash 16.8 H, Plt Count 127 L, MPV 12.4 H, Immature Gran % (Auto) 0.400, Neut % (Auto) 69.2, Lymph % (Auto) 20.4, [place] % (Auto) 7.4, Eos % (Auto) 1.7, Baso % (Auto) 0.9, Absolute Neuts (auto) 5.3, Absolute Lymphs (auto) 1.57, Nucleated RBC % 0 03/14/21 06:00: Sodium 137, Potassium 3.8, Chloride 105, Carbon Dioxide 22.0, Anion Gap 10, BUN 24 H, Creatinine 1.32 H, Estim Creat Clear Calc 32.71, Est GFR (MDRD) Af Amer 52 L, Est GFR (MDRD) Non-Af 43 L, BUN/Creatinine Ratio 18.2, Glucose 104, Calcium 8.8 Cardiology Labs/Tests 03/14/21 06:00: WBC 7.7, RBC 3.64 L, Hgb 10.2 L, Hct 33.3 L, MCV 91.5, MCH 28.0, MCHC 30.6 L, Plt Count 127 L, MPV 12.4 H, Immature Gran % (Auto) 0.400, Neut % (Auto) 69.2, Lymph % (Auto) 20.4, [place] % (Auto) 7.4, Eos % (Auto) 1.7, Baso % (Auto) 0.9, Absolute Neuts (auto) 5.3, Nucleated RBC % 0 03/14/21 06:00: Sodium 137, Potassium 3.8, Chloride 105, Carbon Dioxide 22.0, Anion Gap 10, BUN 24 H, Creatinine 1.32 H, Est GFR (MDRD) Af Amer 52 L, Est GFR (MDRD) Non-Af 43 L, BUN/Creatinine Ratio 18.2, Glucose 104, Calcium 8.8 Rhythm: EKG: ECHO: Stress Test: Cardiac Cath: PCI: CT Surgery: Holter monitor: EPS: PPM: CXR: Chest CT Scan: Physical Exam Const alert and oriented x3 Eyes conjunctivae normal Neck Carotids: normal carotid upstroke Chest inspection of chest normal Resp Auscultation: diminished lung sounds Cardio regular rate Heart Sounds: S1 normal, S2 normal and murmur systolic Extremity General Extremity: edema Neuro oriented x3 Assessment & Plan Assessment/Plan (1) Diastolic congestive heart failure: PLAN: She does have evidence of diastolic heart failure. Her recent ejection fraction was preserved. I would recommend that we diurese her with intravenous Lasix and see how she does before proceeding to assess her coronary anatomy. I have discussed the above with her she understands and agrees to proceed. (2) History of coronary artery bypass graft: PLAN: She is status post coronary artery bypass surgery with a left internal mammary artery to the left anterior descending artery. Her troponin elevation is likely secondary to her chronic coronary disease. However this may need to be reevaluated to make sure that there is no significant coronary disease which has developed in the interim We will likely proceed with cardiac catheterization on Tuesday a.m. (3) Aortic stenosis: QUALIFIERS: Cardiac valve disease etiology: etiology unspecified Qualified Code(s): I35.0 - Nonrheumatic aortic (valve) stenosis PLAN: She does have moderate aortic stenosis from an echocardiogram performed recently. Her mean gradient is 21 mmHg. Her ejection fraction is preserved at 60%. I would not recommend that we make any changes at this particular time I do not think that she is a candidate for aortic valve replacement at this time. (4) Essential hypertension: PLAN: Her blood pressure appears to be under good control on the current medical therapy I would not recommend we make any changes at this particular time. (5) Atrial fibrillation with RVR: PLAN: She appears to be maintaining sinus rhythm at this time. I will however recommend we temporarily hold her Eliquis as she may be requiring a cardiac catheterization. I discussed the above with her and the nurse and she understands.
[2021-03-14] MEDS: Acetaminophen 325 MG Tablet 650 MG PO ×2 (11:10→17:15)
[2021-03-14 11:51] LABS: Bedside Glucose 90 mg/dL (70-110)
[2021-03-14] MEDS: Insulin Lispro 100 UNIT/ML INSULN.PEN 20 UNIT SC (12:09)
[2021-03-14] MEDS: Insulin Lispro 100 UNIT/ML INSULN.PEN SC (12:09)
[2021-03-14 12:15] LABS: Bedside Glucose 218 mg/dL (70-110)
--- NOTE | 2021-03-14 14:11 | PN.HOSP_ITS ---
Subjective Subjective Patient seen and examined. Reports improvement in breathing. Amenable to heart cath however concerned she would not be able to lie flat. Discussed that we will trial this tomorrow and see if patient is able to tolerate. She denies new symptoms or complaints. Objective Data Objective Data Vital Signs: Vital Signs Temp Pulse Resp BP Pulse Ox 97.9 F 67 18 125/60 H 97 03/14/21 09:30 03/14/21 09:30 03/14/21 09:30 03/14/21 09:30 03/14/21 09:30 Oxygen Flow Rate (L/min) 2 Oxygen Delivery Method Room Air Weight: 254 lb 13.67 oz Body Mass Index (BMI) 46.7 Intake & Output: Intake and Output for Last 24 Hours 03/12/21 03/13/21 03/14/21 23:59 23:59 23:59 Intake Total 850 / 1090 420 / 420 Output Total 1600 / 1600 Balance -750 / -510 420 / 420 Lab / Micro Data Result Diagrams: 03/14/21 06:00 03/14/21 06:00 Labs: Laboratory Results - last 24 hr 03/13/21 17:04: POC Glucose 69 L 03/13/21 21:24: POC Glucose 91 03/14/21 06:00: WBC 7.7, RBC 3.64 L, Hgb 10.2 L, Hct 33.3 L, MCV 91.5, MCH 28.0, MCHC 30.6 L, RDW Std Deviation 56.9 H, RDW Coeff of Ash 16.8 H, Plt Count 127 L, MPV 12.4 H, Immature Gran % (Auto) 0.400, Neut % (Auto) 69.2, Lymph % (Auto) 20.4, [place] % (Auto) 7.4, Eos % (Auto) 1.7, Baso % (Auto) 0.9, Absolute Neuts (auto) 5.3, Absolute Lymphs (auto) 1.57, Nucleated RBC % 0 03/14/21 06:00: Sodium 137, Potassium 3.8, Chloride 105, Carbon Dioxide 22.0, Anion Gap 10, BUN 24 H, Creatinine 1.32 H, Estim Creat Clear Calc 32.71, Est GFR (MDRD) Af Amer 52 L, Est GFR (MDRD) Non-Af 43 L, BUN/Creatinine Ratio 18.2, Glu cose 104, Calcium 8.8 03/14/21 07:50: POC Glucose 90 03/14/21 12:07: POC Glucose 218 H Micro: Microbiology 03/13/21 01:20 Nasal Secretion SARS-CoV-2 Antigen (Rapid) - Final Physical Exam Const alert, oriented x3 and no apparent distress Orientation / Consciousness: awake, oriented to person, oriented to place and oriented to time HEENT normocephalic and moist oral mucous membranes Eyes PERRL, EOMs intact bilaterally and conjunctivae normal Neck no lymphadenopathy Resp clear to auscultation bilaterally Auscultation: diminished lung sounds Cardio regular rate, regular rhythm and no murmurs Peripheral Pulses: pulses 2+ throughout GI normal to inspection, nondistended, normoactive bowel sounds, non-tender and non-distended Extremity normal to inspection General Extremity: edema bilateral lower extremity Details: moderate (Ralph wraps in place) Skin no rashes or lesions noted Lesions: no lesions Rashes: no rashes Trauma: no lacerations or abrasions Neuro CN's II-XII intact bilaterally, no focal motor deficits, no sensory deficits noted and deep tendon reflexes 2+ bilaterally Psych mental status grossly normal and affect normal Assessment & Plan Assessment/Plan (1) Acute exacerbation of CHF (congestive heart failure): QUALIFIERS: Heart failure type: diastolic Qualified Code(s): I50.33 - Acute on chronic diastolic (congestive) heart failure PLAN: 1. Acute on chronic heart failure with preserved ejection fraction- echocardiogram 12/26/2020 demonstrated an EF of 60%, stage II diastolic dysfunction, moderate aortic stenosis. IV Lasix. Strict I&O. Daily weight. Ralph wraps bilateral lower extremities. Cardiology following. Patient is on supplemental oxygen however not documented to be hypoxic. Wean oxygen as tolerated. 2. Elevated troponin-cardiology following. Heart cath on Tuesday. Eliquis on hold. 3. CAD with history of CABG-continue medical management. 4. Valvular heart disease with moderate aortic stenosis-recent echo 12/26/2020 demonstrated moderate aortic stenosis. 5. Paroxysmal atrial fibrillation-Eliquis on hold. Continue metoprolol. 6. Type 2 diabetes [id number] with sliding scale insulin. Continue home insulin regimen. 7. Chronic normocytic anemia-trend CBC 8. Hypertension-stable, continue metoprolol, amlodipine. 9. Hyperlipidemia-continue statin. 10. KAVITA-continue CPAP 11. Hypothyroidism-continue Synthroid regimen. 12. Anxiety/depression-not on regimen. 13. Morbid obesity-encouraged diet and lifestyle modifications. 14. Chronic kidney disease stage IIIa-at baseline, trend BMP. DVT prophylaxis-Eliquis on hold Discharge plan: Plan for heart cath on Tuesday. This patient was seen by GILLES Roberson under the supervision of Dr. Chadwick.
[2021-03-14 16:55] LABS: Bedside Glucose 141 mg/dL (70-110)
[2021-03-14] MEDS: Atorvastatin Calcium 20 MG Tablet PO (21:22)
[2021-03-14 21:45] LABS: Bedside Glucose 141 mg/dL (70-110)
[2021-03-15] VITALS (12 sets, daily range): BP systolic 111–138; BP diastolic 50–73; PULSE 56–69; RESP 18; TEMP 36.2–36.7; O2SAT 94–100
[2021-03-15] MEDS: Levothyroxine 100 MCG Tablet PO (05:01)
[2021-03-15] MEDS: Morphine 2 MG/ML Syringe IV (05:09)
[2021-03-15] MEDS: 0.9% Saline Lock 10 ML Syringe IV ×2 (05:09→22:41)
[2021-03-15 07:03] LABS: Absolute Lymphocyte Count 1.35 X10^3/uL (0.83-4.51); Absolute Neutrophil Count 5.6 X10^3/uL (2.0-7.7); Basophil# 0.06 X10^3/uL; Basophil% 0.8 % (0-1); Eosinophil# 0.24 X10^3/uL; Hemoglobin 9.9 g/dL (12.0-15.0); Lymphocyte # 1.35 X10^3/ul (0.83-4.51); Lymphocyte % 16.9 % (19-41); Mean Corp Hgb Conc 30.9 g/dL (32-36); Mean Corpuscular Hgb 28.4 pg (27.0-32.0); Mean Corpuscular Volume 91.7 fL (81-99); Mean Platelet Vol. 12.6 fl (6.2-12.0); Monocyte# 0.74 X10^3/uL; Monocyte% 9.3 % (0-10); NRBC Flagged by Analyzer 0 % (0-5); Neutrophil # 5.57 X10^3/uL (2.7-7.7); Neutrophil % 69.7 % (47-70); Platelet Count 120 K/mm3 (150-450); RBC Distribution Width CV 16.6 % (11.6-14.6); Red Blood Count 3.49 M/mm3 (4.2-5.4)
[2021-03-15 07:40] LABS: Anion Gap 5 (5-15); BUN 31 mg/dL (7-18); BUN/Creat Ratio 22.6 RATIO (10-20); Calcium,Total 9.2 mg/dL (8.5-10.1); Chloride 103 mmol/L (98-107); Creatinine, Serum 1.37 mg/dL (0.55-1.02); EST Glomerular Filtration Rate 41 mL/min (>60); Est Glom Filt Rate - Afr Amer 49 mL/min (>60); Estimated Creatinine Clearance 31.52 ml/min; Glucose 96 mg/dL (74-106); Potassium 3.8 mmol/L (3.5-5.1); Sodium Level 137 mmol/L (136-145)
[2021-03-15] MEDS: Metoprolol Tartrate 25 MG Tablet 75 MG PO ×2 (08:46→22:35)
[2021-03-15] MEDS: Furosemide 40 MG/4 ML Vial IV ×2 (08:46→17:37)
[2021-03-15] MEDS: Aspirin 81 MG TAB.CHEW PO (08:46)
[2021-03-15 09:00] LABS: Bedside Glucose 91 mg/dL (70-110)
--- NOTE | 2021-03-15 09:01 | PN.CARD_ITS ---
Subjective Subjective Patient seen and evaluated. Appears to be doing better this morning. Objective Data Vital Signs: Vital Signs Temp Pulse Resp BP Pulse Ox 97.7 F L 65 18 111/65 96 03/15/21 08:35 03/15/21 08:46 03/15/21 08:35 03/15/21 08:46 03/15/21 08:35 Oxygen Flow Rate (L/min) 2 Oxygen Delivery Method Nasal Cannula Weight: 254 lb 13.67 oz Body Mass Index (BMI) 46.7 Intake & Output: Intake and Output for Last 24 Hours 03/13/21 03/14/21 03/15/21 23:59 23:59 23:59 Intake Total 850 / 1090 900 / 1020 180 / 180 Output Total 1600 / 1600 0 / 0 Balance -750 / -510 900 / 1020 180 / 180 Lab / Micro Data Result Diagrams: 03/15/21 06:05 03/15/21 06:05 Labs: Laboratory Results - last 24 hr 03/14/21 07:50: POC Glucose 90 03/14/21 12:07: POC Glucose 218 H 03/14/21 16:50: POC Glucose 141 H 03/14/21 21:21: POC Glucose 141 H 03/15/21 06:05: WBC 8.0, RBC 3.49 L, Hgb 9.9 L, Hct 32.0 L, MCV 91.7, MCH 28.4, MCHC 30.9 L, RDW Std Deviation 56.0 H, RDW Coeff of Ash 16.6 H, Plt Count 120 L, MPV 12.6 H, Immature Gran % (Auto) 0.300, Neut % (Auto) 69.7, Lymph % (Auto) 16.9 L, [place] % (Auto) 9.3, Eos % (Auto) 3.0, Baso % (Auto) 0.8, Absolute Neuts (auto) 5.6, Absolute Lymphs (auto) 1.35, Nucleated RBC % 0 03/15/21 06:05: Sodium 137, Potassium 3.8, Chloride 103, Carbon Dioxide 29.0, Anion Gap 5, BUN 31 H, Creatinine 1.37 H, Estim Creat Clear Calc 31.52, Est GFR (MDRD) Af Amer 49 L, Est GFR (MDRD) Non-Af 41 L, BUN/Creatinine Ratio 22.6 H, Gl ucose 96, Calcium 9.2 03/15/21 08:37: POC Glucose 91 Cardiology Labs/Tests 03/15/21 06:05: WBC 8.0, RBC 3.49 L, Hgb 9.9 L, Hct 32.0 L, MCV 91.7, MCH 28.4, MCHC 30.9 L, Plt Count 120 L, MPV 12.6 H, Immature Gran % (Auto) 0.300, Neut % (Auto) 69.7, Lymph % (Auto) 16.9 L, [place] % (Auto) 9.3, Eos % (Auto) 3.0, Baso % (Auto) 0.8, Absolute Neuts (auto) 5.6, Nucleated RBC % 0 03/15/21 06:05: Sodium 137, Potassium 3.8, Chloride 103, Carbon Dioxide 29.0, Anion Gap 5, BUN 31 H, Creatinine 1.37 H, Est GFR (MDRD) Af Amer 49 L, Est GFR (MDRD) Non-Af 41 L, BUN/Creatinine Ratio 22.6 H, Glucose 96, Calcium 9.2 Rhythm: EKG: ECHO: Stress Test: Cardiac Cath: PCI: CT Surgery: Holter monitor: EPS: PPM: CXR: Chest CT Scan: Physical Exam Const alert and oriented x3 Eyes conjunctivae normal Neck Carotids: normal carotid upstroke Chest inspection of chest normal Resp Auscultation: diminished lung sounds Cardio regular rate Heart Sounds: S1 normal, S2 normal and murmur systolic Extremity General Extremity: edema Neuro oriented x3 Assessment & Plan Assessment/Plan (1) Diastolic congestive heart failure: PLAN: She does have evidence of diastolic heart failure. Her recent ejection fraction was preserved. I would recommend that we diurese her with intravenous Lasix and see how she does before proceeding to assess her coronary anatomy. I have discussed the above with her she understands and agrees to proceed. * We will schedule left heart cath for tomorrow a.m. (2) History of coronary artery bypass graft: PLAN: She is status post coronary artery bypass surgery with a left internal mammary artery to the left anterior descending artery. Her troponin elevation is likely secondary to her chronic coronary disease. However this may need to be reevaluated to make sure that there is no significant coronary disease which has developed in the interim We will likely proceed with cardiac catheterization on Tuesday a.m. (3) Aortic stenosis: QUALIFIERS: Cardiac valve disease etiology: etiology unspecified Qualified Code(s): I35.0 - Nonrheumatic aortic (valve) stenosis PLAN: She does have moderate aortic stenosis from an echocardiogram performed recently. Her mean gradient is 21 mmHg. Her ejection fraction is preserved at 60%. I would not recommend that we make any changes at this parti cular time I do not think that she is a candidate for aortic valve replacement at this time. (4) Essential hypertension: PLAN: Her blood pressure appears to be under good control on the current medical therapy I would not recommend we make any changes at this particular time. (5) Atrial fibrillation with RVR: PLAN: She appears to be maintaining sinus rhythm at this time. I will however recommend we temporarily hold her Eliquis as she may be requiring a cardiac catheterization. I discussed the above with her and the nurse and she understands.
--- NOTE | 2021-03-15 11:16 | PN.HOSP_ITS ---
Documented by User: Ivon Lema NP, PASTING MACHINE OPERATOR-C 03/15/21 11:39 Subjective Subjective Patient seen and examined. Reports improvement in breathing. States she did not sleep well overnight. Denies new symptoms or complaints. Amendable heart cath in a.m. if she is able to lie flat. Objective Data Objective Data Vital Signs: Vital Signs Temp Pulse Resp BP Pulse Ox 97.7 F L 65 18 111/65 96 03/15/21 08:35 03/15/21 08:46 03/15/21 08:35 03/15/21 08:46 03/15/21 08:35 Oxygen Flow Rate (L/min) 2 Oxygen Delivery Method Nasal Cannula Weight: 254 lb 13.67 oz Body Mass Index (BMI) 46.7 Intake & Output: Intake and Output for Last 24 Hours 03/13/21 03/14/21 03/15/21 23:59 23:59 23:59 Intake Total 850 / 1090 900 / 1020 180 / 180 Output Total 1600 / 1600 0 / 0 Balance -750 / -510 900 / 1020 180 / 180 Lab / Micro Data Result Diagrams: 03/15/21 06:05 03/15/21 06:05 Labs: Laboratory Results - last 24 hr 03/14/21 07:50: POC Glucose 90 03/14/21 12:07: POC Glucose 218 H 03/14/21 16:50: POC Glucose 141 H 03/14/21 21:21: POC Glucose 141 H 03/15/21 06:05: WBC 8.0, RBC 3.49 L, Hgb 9.9 L, Hct 32.0 L, MCV 91.7, MCH 28.4, MCHC 30.9 L, RDW Std Deviation 56.0 H, RDW Coeff of Ash 16.6 H, Plt Count 120 L, MPV 12.6 H, Immature Gran % (Auto) 0.300, Neut % (Auto) 69.7, Lymph % (Auto) 16.9 L, [place] % (Auto) 9.3, Eos % (Auto) 3.0, Baso % (Auto) 0.8, Absolute Neuts (auto) 5.6, Absolute Lymphs (auto) 1.35, Nucleated RBC % 0 03/15/21 06:05: Sodium 137, Potassium 3.8, Chloride 103, Carbon Dioxide 29.0, Anion Gap 5, BUN 31 H, Creatinine 1.37 H, Estim Creat Clear Calc 31.52, Est GFR (MDRD) Af Amer 49 L, Est GFR (MDRD) Non-Af 41 L, BUN/Creatinine Ratio 22.6 H, Glucose 96, Calcium 9.2 03/15/21 08:37: POC Glucose 91 Micro: Microbiology 03/13/21 01:20 Nasal Secretion SARS-CoV-2 Antigen (Rapid) - Final Physical Exam Const alert, oriented x3 and no apparent distress Orientation / Consciousness: awake, oriented to person, oriented to place and oriented to time HEENT normocephalic and moist oral mucous membranes Eyes PERRL, EOMs intact bilaterally and conjunctivae normal Neck no lymphadenopathy Resp clear to auscultation bilaterally Auscultation: diminished lung sounds Cardio regular rate, regular rhythm and no murmurs Peripheral Pulses: pulses 2+ throughout GI normal to inspection, nondistended, normoactive bowel sounds, non-tender and non-distended Extremity normal to inspection General Extremity: edema bilateral lower extremity Details: mild (Ralph wraps in place) Skin no rashes or lesions noted Lesions: no lesions Rashes: no rashes Trauma: no lacerations or abrasions Neuro CN's II-XII intact bilaterally, no focal motor deficits, no sensory deficits noted and deep tendon reflexes 2+ bilaterally Psych mental status grossly normal and affect normal Assessment & Plan Assessment/Plan (1) Acute exacerbation of CHF (congestive heart failure): QUALIFIERS: Heart failure type: diastolic Qualified Code(s): I50.33 - Acute on chronic diastolic (congestive) heart failure PLAN: 1. Acute on chronic heart failure with preserved ejection fraction- echocardiogram 12/26/2020 demonstrated an EF of 60%, stage II diastolic dysfunction, moderate aortic stenosis. IV Lasix. Strict I&O. Daily weight. Ralph wraps bilateral lower extremities. Cardiology following. Patient is on supplemental oxygen however not documented to be hypoxic. Wean oxygen as tolerated. 2. Elevated troponin-cardiology following. Heart cath on Tuesday. Eliquis on hold. 3. CAD with history of CABG-continue medical management. 4. Valvular heart disease with moderate aortic stenosis-recent echo 12/26/2020 demonstrated moderate aortic stenosis. 5. Paroxysmal atrial fibrillation-Eliquis on hold. Continue metoprolol. 6. Type 2 diabetes [id number] with sliding scale insulin. Continue home insulin regimen. 7. Chronic normocytic anemia-trend CBC 8. Hypertension-stable, continue metoprolol, amlodipine. 9. Hyperlipidemia-continue statin. 10. KAVITA-continue CPAP 11. Hypothyroidism-continue Synthroid regimen. 12. Anxiety/depression-not on regimen. 13. Morbid obesity-encouraged diet and lifestyle modifications. 14. Chronic kidney disease stage IIIa-at baseline, trend BMP. DVT prophylaxis-Eliquis on hold Discharge plan: Plan for heart cath on Tuesday. This patient was seen by GILLES Roberson under the supervision of Dr. Rosalie galdamez. Documented by User: Dr. Riki Chadwick MD 03/15/21 12:04 Subjective Subjective Patient leg edema and shortness of breath is responding well with diuresis. Patient agrees for cardiac cath tomorrow a.m. Objective Data Lab / Micro Data Result Diagrams: 03/15/21 06:05 03/15/21 06:05 Physical Exam Narrative General: Alert, Oriented x3, Cooperative, morbid obese BMI 46.6 kg/m? HEENT: Atraumatic, PERRLA, EOMI, Normocephalic Oral: No Gingival or Mucosal Lesions/ Ulcerations Neck: Supple, No JVD, Negative Carotid Bruits Lungs: Air entry diminished in bilateral lung bases. Bilateral crepitations and wheezing Cardiovascular: Regular rate, Regular Rhythm, Normal S1, Normal S2, ESM over right second ICS with radiation to carotids, grade 4/6 Abdomen: Bowel Sounds Present, Soft, Non Tender, Non-Distended : No renal angle tenderness. No suprapubic tenderness. Extremities: Bilateral leg edema improving, Capillary Refill Less than 3 Seconds Skin: No rashes, No breakdown Musculoskeletal: No Tenderness to Palpation of Joints or Extremities Neurological: Cranial nerves II-XII grossly intact, DTR 2+/4 and Symmetrical, Neuro grossly intact Psych/Mental Status: Normal Affect, Appropriate. Assessment & Plan Assessment/Plan (1) Acute exacerbation of CHF (congestive heart failure): QUALIFIERS: Heart failure type: diastolic Qualified Code(s): I50.33 - Acute on chronic diastolic (congestive) heart failure PLAN: This patient was seen in conjunction with Ivon DAVIS. I have independently interviewed and examined the patient and reviewed pertinent history, examination findings, laboratory and plan of management. I have rev iewed the note and agree with the documented findings with the few additional points. In brief, patient is a 65-year-old female with history of moderate aortic stenosis as per echo 12/26/2020, AV area 1.1 cm?, mean aortic gradient 21.2 mmHg came to ER with acute shortness breath, leg swelling consistent with acute on chronic diastolic heart failure. EF 60%. Patient seen by chain forming machine operator. Jacome ry artery status post CABG, left internal mammary to LAD at the time of her first IN in 2008. Troponin elevated, consistent with non-STEMI. Plan for cardiac cath on Tuesday. Paroxysmal A. fib, Eliquis on hold. Heart rate is controlled. Continue diuresis. On Xanax for anxiety. Other comorbidities as mentioned above I have discussed my assessment with Ivon DAVIS and orders have been reviewed. Charges/Coding Visit Charges Inpatient E&M: 09147 Subs Hosp L2
[2021-03-15] MEDS: Insulin Lispro 100 UNIT/ML INSULN.PEN 20 UNIT SC (11:22)
[2021-03-15] MEDS: Insulin Lispro 100 UNIT/ML INSULN.PEN SC ×2 (11:23→22:45)
[2021-03-15 11:30] LABS: Bedside Glucose 176 mg/dL (70-110)
[2021-03-15] MEDS: Acetaminophen 325 MG Tablet 650 MG PO (14:26)
[2021-03-15] MEDS: ALPRAZolam 0.5 MG Tablet PO (14:27)
[2021-03-15 16:45] LABS: Bedside Glucose 113 mg/dL (70-110)
[2021-03-15] MEDS: dexAMETHasone 10 MG/ML Vial IV (17:37)
[2021-03-15] MEDS: Ketorolac 15 MG/ML Vial IV (17:37)
[2021-03-15] MEDS: Atorvastatin Calcium 20 MG Tablet PO (22:35)
[2021-03-16] VITALS (27 sets, daily range): BP systolic 106–138; BP diastolic 48–67; PULSE 56–67; RESP 16–30; TEMP 36.4–36.9; O2SAT 93–100
[2021-03-16 00:31] LABS: Bedside Glucose 246 mg/dL (70-110)
[2021-03-16 05:55] LABS: Absolute Lymphocyte Count 0.22 X10^3/uL (0.83-4.51); Absolute Neutrophil Count 4.2 X10^3/uL (2.0-7.7); Basophil# 0.01 X10^3/uL; Basophil% 0.2 % (0-1); Hemoglobin 10.2 g/dL (12.0-15.0); Lymphocyte # 0.22 X10^3/ul (0.83-4.51); Lymphocyte % 4.8 % (19-41); Mean Corpuscular Hgb 27.7 pg (27.0-32.0); Mean Corpuscular Volume 92.4 fL (81-99); Mean Platelet Vol. 12.5 fl (6.2-12.0); Monocyte# 0.13 X10^3/uL; Monocyte% 2.8 % (0-10); NRBC Flagged by Analyzer 0 % (0-5); Neutrophil % 91.8 % (47-70); POSITIVE DIFFERENTIAL YES; Platelet Count 123 K/mm3 (150-450); RBC Distribution Width CV 16.5 % (11.6-14.6); RBC Distribution Width SD 56.4 fl (35.1-43.9); Red Blood Count 3.68 M/mm3 (4.2-5.4); White Blood Count 4.6 K/mm3 (4.4-11.0)
--- NOTE | 2021-03-16 05:55 | EKG12_ITS ---
Test Reason : Blood Pressure : / mmHG Vent. Rate : 064 BPM Atrial Rate : 064 BPM P-R Int : 258 ms QRS Dur : 110 ms QT Int : 344 ms P-R-T Axes : 057 -61 142 degrees QTc Int : 354 ms Sinus rhythm with 1st degree A-V block Left axis deviation Left ventricular hypertrophy with repolarization abnormality Inferior infarct , age undetermined Anterolateral infarct , age undetermined Abnormal ECG Confirmed by CAMERON GUTIÉRREZ, UYEN ([id number]), associate entertainment editor JOSE ROBERTO BEJARANO ([id number]) on 03/17/2021 9:39:05 AM Referred By: ANDRÉS Confirmed By:UYEN BARNES MD
[2021-03-16 06:23] LABS: Anion Gap 8 (5-15); BUN 40 mg/dL (7-18); BUN/Creat Ratio 24.1 RATIO (10-20); Calcium,Total 9.2 mg/dL (8.5-10.1); Chloride 100 mmol/L (98-107); Creatinine, Serum 1.66 mg/dL (0.55-1.02); EST Glomerular Filtration Rate 33 mL/min (>60); Est Glom Filt Rate - Afr Amer 40 mL/min (>60); Estimated Creatinine Clearance 26.01 ml/min; Glucose 216 mg/dL (74-106); Potassium 4.5 mmol/L (3.5-5.1); Sodium Level 135 mmol/L (136-145)
[2021-03-16 06:29] LABS: International Normalized Ratio 1.4; Prothrombin Time (Protime)PT. 16.1 SECONDS (11.7-14.9)
[2021-03-16 06:44] LABS: Differential Indicated SCAN CRITERIA MET
[2021-03-16] MEDS: Metoprolol Tartrate 25 MG Tablet 75 MG PO ×2 (06:46→21:23)
[2021-03-16] MEDS: Levothyroxine 100 MCG Tablet PO ×2 (06:46→06:47)
[2021-03-16] MEDS: Aspirin 81 MG TAB.CHEW PO (06:47)
[2021-03-16 07:01] LABS: Differential Comment SCANNED
[2021-03-16 07:06] LABS: Bedside Glucose 215 mg/dL (70-110)
--- NOTE | 2021-03-16 10:30 | PN.HOSP_ITS ---
Documented by User: Ivon Lema NP, [employer] 03/16/21 10:41 Subjective Subjective Patient seen and examined. Reports improvement in breathing. Feels she is able to lie flat for heart cath. Denies new symptoms or complaints. To undergo heart cath today. Objective Data Objective Data Vital Signs: Vital Signs Temp Pulse Resp BP Pulse Ox 97.5 F L 56 L 16 126/57 H 95 03/16/21 09:45 03/16/21 09:45 03/16/21 09:45 03/16/21 09:45 03/16/21 09:45 Oxygen Flow Rate (L/min) 1 Oxygen Delivery Method Nasal Cannula Weight: 256 lb 13.416 oz Body Mass Index (BMI) 46.7 Intake & Output: Intake and Output for Last 24 Hours 03/14/21 03/15/21 03/16/21 23:59 23:59 23:59 Intake Total 900 / 1020 780 / 780 Output Total 0 / 0 Balance 900 / 1020 780 / 780 Lab / Micro Data Result Diagrams: 03/16/21 05:40 03/16/21 05:40 Labs: Laboratory Results - last 24 hr 03/15/21 11:19: POC Glucose 176 H 03/15/21 16:38: POC Glucose 113 H 03/15/21 22:44: POC Glucose 246 H 03/16/21 05:40: WBC 4.6, RBC 3.68 L, Hgb 10.2 L, Hct 34.0 L, MCV 92.4, MCH 27.7, MCHC 30.0 L, RDW Std Deviation 56.4 H, RDW Coeff of Ash 16.5 H, Plt Count 123 L, MPV 12.5 H, Immature Gran % (Auto) 0.400, Neut % (Auto) 91.8 H, Lymph % (Auto) 4.8 L, [place] % (Auto) 2.8, Eos % (Auto) 0.0, Baso % (Auto) 0.2, Absolute Neuts (auto) 4.2, Absolute Lymphs (auto) 0.22 L, Nucleated RBC % 0, Differential Comment SCANNED 03/16/21 05:40: PT 16.1 H, INR 1.4 03/16/21 05:40: Sodium 135 L, Potassium 4.5, Chloride 100, Carbon Dioxide 27.0, Anion Gap 8, BUN 40 H, Creatinine 1.66 H, Estim Creat Clear Calc 26.01, Est GFR (MDRD) Af Amer 40 L, Est GFR (MDRD) Non-Af 33 L, BUN/Creatinine Ratio 24.1 H, Glucose 216 H, Calcium 9.2 03/16/21 06:49: POC Glucose 215 H Micro: Microbiology 03/13/21 01:20 Nasal Secretion SARS-CoV-2 Antigen (Rapid) - Final Physical Exam Const alert, oriented x3 and no apparent distress Orientation / Consciousness: awake, oriented to person, oriented to place and oriented to time HEENT normocephalic and moist oral mucous membranes Eyes PERRL, EOMs intact bilaterally and conjunctivae normal Neck no lymphadenopathy Resp clear to auscultation bilaterally Auscultation: diminished lung sounds Cardio regular rate, regular rhythm and no murmurs Peripheral Pulses: pulses 2+ throughout GI normal to inspection, nondistended, normoactive bowel sounds, non-tender and non-distended Extremity normal to inspection General Extremity: edema bilateral lower extremity Details: mild (Ralph wraps in place) Skin no rashes or lesions noted Lesions: no lesions Rashes: no rashes Trauma: no lacerations or abrasions Neuro CN's II-XII intact bilaterally, no focal motor deficits, no sensory deficits noted and deep tendon reflexes 2+ bilaterally Psych mental status grossly normal and affect normal Assessment & Plan Assessment/Plan (1) Acute exacerbation of CHF (congestive heart failure): QUALIFIERS: Heart failure type: diastolic Qualified Code(s): I50.33 - Acute on chronic diastolic (congestive) heart failure PLAN: 1. Acute on chronic heart failure with preserved ejection fraction- echocardiogram 12/26/2020 demonstrated an EF of 60%, stage II diastolic dysfunction, moderate aortic stenosis. Transition from IV Lasix to oral given i ncreasing creatinine. Strict I&O. Daily weight. Ralph wraps bilateral lower extremities. Cardiology following. Patient is on supplemental oxygen however not documented to be hypoxic. Wean oxygen as tolerated. Walking pulse ox prior to discharge. 2. Elevated troponin-cardiology following. Heart cath on Tuesday. Eliquis on hold. 3. CAD with history of CABG-continue medical management. 4. Valvular heart disease with moderate aortic stenosis-recent echo 12/26/2020 demonstrated moderate aortic stenosis. 5. Paroxysmal atrial fibrillation-Eliquis on hold. Continue metoprolol. 6. Type 2 diabetes [id number] with sliding scale insulin. Continue home insulin regimen. 7. Chronic normocytic anemia-trend CBC 8. Hypertension-stable, continue metoprolol, amlodipine. 9. Hyperlipidemia-continue statin. 10. KAVITA-continue CPAP 11. Hypothyroidism-continue Synthroid regimen. 12. Anxiety/depression-not on regimen. 13. Morbid obesity-encouraged diet and lifestyle modifications. 14. Chronic kidney disease stage IIIa-at baseline, trend BMP. DVT prophylaxis-Eliquis on hold Discharge plan: Pending heart cath. This patient was seen by GILLES Roberson under the supervision of Dr. Bazzi. Documented by User: Dr. Shavonne Bazzi MD 03/16/21 17:30 Objective Data Lab / Micro Data Result Diagrams: 03/16/21 05:40 03/16/21 05:40 Charges/Coding Addendum Addendum: This patient was seen in conjunction with Ivon Lema. I have independently interviewed and examined the patient and reviewed pertinent historical, laboratory, and other data. I have reviewed her note and concur with her documentation Patient was seen and examined. Denied any new complaints. Echo showed severely calcified mid and distal left circumflex artery, totally occluded mid-right CAD Physical Exam: Gen: Comfortable, not pale, not jaundiced CVS:HS I +II, regular, no murmurs RESP: Diminished at lung bases GI: BS present and normal, soft, nontender, no palpable organs EXT:Bilateral leg edema +1-2 ASSESSMENT: 1. Acute exacerbation of heart failure with preserved EF 2. Elevated troponin 3. CAD status post CABG 4. Valvular heart disease/moderate aortic stenosis 5. Paroxysmal atrial fibrillation 6. Type II DM 7. Hypothyroidism 8. Hyperlipidemia Plan: Discussed with cardiology?medical management Meds reviewed Visit Charges Inpatient E&M: 05542 Subs Hosp L2
[2021-03-16 11:31] LABS: Bedside Glucose 190 mg/dL (70-110)
[2021-03-16 15:46] LABS: Bedside Glucose 201 mg/dL (70-110)
--- NOTE | 2021-03-16 16:36 | CL.D_ITS ---
Patient Name: ABE SARAVIA Study Date: 03/16/2021 Performing: Jimbo Feliciano MD Ht: 61.81 inches 157 cm : 1955 Wt: 257.94 lbs 117 kg Age: 65 Gender: female BSA: 2.13 PROCEDURE(S) PERFORMED [id number]/COR/LV/CABG CLINICAL PROFILE AND INDICATIONS Indications: Suspected CAD Heart Failure: NYHA Class: 3, Newly Diagnosed: Yes, Heart Failure Type: Diastolic CONCLUSIONS Severely calcified mid and distal left circumflex artery lesion in the codominant vessel; totally occ luded mid right coronary artery stenosis; patent WOODS to the LAD; mild aortic stenosis Aortic Valve Stenosis- Mild RECOMMENDATIONS Would consider PCI with rotablation to the mid circumflex artery. DESCRIPTION OF PROCEDURE The patient arrived to the procedure lab. The risks and benefits of the procedure as well as a full d escription of our services here and current unavailability of surgical backup were fully explained to the patient and/or their significant other prior to the catheterization. The Timeout was completed, verifying the correct patient and procedure. The patient's procedural site was prepped and draped in the usual fashion. Local anesthetic was given subcutaneously to right groin region with Lidocaine 2%. Using a modified Seldinger technique, arterial access was obtained via the right femoral artery, a 5 Fr sheath was inserted. Left Coronary Artery selective angiography was performed in multiple views u sing a 5 Fr. JL4 catheter. Right Coronary Artery selective angiography was then performed in multiple views using a 5 Fr. 3DRC (Rupesh) catheter. Left internal mammary artery graft to the LAD selectiv e angiography was performed in multiple views using a 5 Fr. 3DRC (Rupesh) catheter. Left Ventriculography was performed in LÓPEZ projection using a 5 Fr. Pigtail catheter. LV to AO pullback pr essures were then recorded.Contrast was injected through the sheath and the Right Iliac and Femoral a rtery were assessed for possible closure device.The arterial sheath was pulled and a Perclose closure device was deployed for hemostasis CORONARY ANGIOGRAPHY DOMINANCE: Co- Dominant LEFT HEART ASSESSMENT Left Ventricular Ejection Fraction: by LV Gram 50 % Inferior Basal Hypokinesis - Mild Normal Left Ventricular systolic function LEFT MAIN: Angiographically normal LEFT ANTERIOR DESCENDING ARTERY: MID LAD: is occluded CIRCUMFLEX ARTERY: The circumflex artery is significantly calcified. In the mid segment there appear s to be a focal calcified lesion of approximately 80% and then at the bifurcation of an obtuse margin al branch and the posterior lateral branch to 90% stenotic calcified lesions. The second obtuse qamar inal branch is subtotally occluded. RIGHT CORONARY ARTERY: PROX RCA: There is a high-grade proximal calcified 80% stenosis and then in the mid segment the vesse l is occluded GRAFTS: WOODS graft to the Mid LAD is patent COMPLICATIONS No Complications PROCEDURE MEDICATIONS Versed 1 mg IV Fentanyl 50 mcg IV Oxygen: 2 L/min via nasal cannula SUMMARY OF HEMODYNAMIC DATA Time AIR REST ECG 15:52:12 LV 144/18, 38 16:13:16 LV 146/17, 30 16:13:38 LV 143/18, 29 16:14:11 LV 140/17, 29 16:14:18 LVp 136/18, 35 16:14:23 AOp 120/54 (79) 16:14:28 AO 125/57 (83) SA 16:14:44 16:27:50 Signed By Jimbo Feliciano MD On 03/16/2021 4:35:21 PM Jimbo Feliciano MD
--- NOTE | 2021-03-16 16:36 | CASEMGMT ---
OLGA MARMOLEJO NOTE: Pt qualifies for a Palliative referral per the [facility] palliative screening tool at this time. Dr Bazzi aware and states ok for Palliative c/s at this time. Order placed. Palliative updated at this time. Face Sheet faxed to Palliative at this time. Patricia JOHNSON RN CM
--- NOTE | 2021-03-16 16:38 | PN.CARD_ITS ---
Subjective Subjective Patient seen and evaluated. Underwent cardiac catheterization today. Objective Data Vital Signs: Vital Signs Temp Pulse Resp BP Pulse Ox 97.5 F L 56 L 16 126/57 H 95 03/16/21 09:45 03/16/21 09:45 03/16/21 09:45 03/16/21 09:45 03/16/21 09:45 Oxygen Flow Rate (L/min) 1 Oxygen Delivery Method Nasal Cannula Weight: 256 lb 13.416 oz Body Mass Index (BMI) 46.7 Intake & Output: Intake and Output for Last 24 Hours 03/14/21 03/15/21 03/16/21 23:59 23:59 23:59 Intake Total 900 / 1020 780 / 780 Output Total 0 / 0 Balance 900 / 1020 780 / 780 Lab / Micro Data Result Diagrams: 03/16/21 05:40 03/16/21 05:40 Labs: Laboratory Results - last 24 hr 03/15/21 16:38: POC Glucose 113 H 03/15/21 22:44: POC Glucose 246 H 03/16/21 05:40: WBC 4.6, RBC 3.68 L, Hgb 10.2 L, Hct 34.0 L, MCV 92.4, MCH 27.7, MCHC 30.0 L, RDW Std Deviation 56.4 H, RDW Coeff of Ash 16.5 H, Plt Count 123 L, MPV 12.5 H, Immature Gran % (Auto) 0.400, Neut % (Auto) 91.8 H, Lymph % (Auto) 4.8 L, [place] % (Auto) 2.8, Eos % (Auto) 0.0, Baso % (Auto) 0.2, Absolute Neuts (auto) 4.2, Absolute Lymphs (auto) 0.22 L, Nucleated RBC % 0, Differential Comment SCANNED 03/16/21 05:40: PT 16.1 H, INR 1.4 03/16/21 05:40: Sodium 135 L, Potassium 4.5, Chloride 100, Carbon Dioxide 27.0, Anion Gap 8, BUN 40 H, Creatinine 1.66 H, Estim Creat Clear Calc 26.01, Est GFR (MDRD) Af Amer 40 L, Est GFR (MDRD) Non-Af 33 L, BUN/Creatinine Ratio 24.1 H, Glucose 216 H, Calcium 9.2 03/16/21 06:49: POC Glucose 215 H 03/16/21 11:26: POC Glucose 190 H 03/16/21 15:42: POC Glucose 201 H Cardiology Labs/Tests 03/16/21 05:40: WBC 4.6, RBC 3.68 L, Hgb 10.2 L, Hct 34.0 L, MCV 92.4, MCH 27.7, MCHC 30.0 L, Plt Count 123 L, MPV 12.5 H, Immature Gran % (Auto) 0.400, Neut % (Auto) 91.8 H, Lymph % (Auto) 4.8 L, [place] % (Auto) 2.8, Eos % (Auto) 0.0, Baso % (Auto) 0.2, Absolute Neuts (auto) 4.2, Nucleated RBC % 0 03/16/21 05:40: PT 16.1 H, INR 1.4 03/16/21 05:40: Sodium 135 L, Potassium 4.5, Chloride 100, Carbon Dioxide 27.0, Anion Gap 8, BUN 40 H, Creatinine 1.66 H, Est GFR (MDRD) Af Amer 40 L, Est GFR (MDRD) Non-Af 33 L, BUN/Creatinine Ratio 24.1 H, Glucose 216 H, Calcium 9.2 Rhythm: EKG: ECHO: Stress Test: Cardiac Cath: PCI: CT Surgery: Holter monitor: EPS: PPM: CXR: Chest CT Scan: Physical Exam Const alert and oriented x3 Eyes conjunctivae normal Neck Carotids: normal carotid upstroke Chest inspection of chest normal Resp Auscultation: diminished lung sounds Cardio regular rate Heart Sounds: S1 normal, S2 normal and murmur systolic Extremity General Extremity: edema Neuro oriented x3 Assessment & Plan Assessment/Plan (1) Diastolic congestive heart failure: PLAN: She does have evidence of diastolic heart failure. Her recent ejection fraction was preserved. * Will continue with diuretics for another day IV and then switch to p.o. (2) History of coronary artery bypass graft: PLAN: She is status post coronary artery bypass surgery with a left internal mammary artery to the left anterior descending artery. * Cardiac catheterization today demonstrated the following: Patent left internal mammary artery to the left anterior descending artery. Left anterior descending artery totally occluded in the midsegment. Left circumflex artery which is severely calcified in multiple areas and does not appear to be significantly changed from prior to bypass surgery. Right coronary artery which is totally occluded. Preserved left ventricular systolic function. Based on the above angiographic findings I would recommend outpatient evaluation for coronary rotablation of the left circumflex artery. (3) Aortic stenosis: QUALIFIERS: Cardiac valve disease etiology: etiology unspecified Qualified Code(s): I35.0 - Nonrheumatic aortic (valve) stenosis PLAN: She does have moderate aortic stenosis from an echocardiogram performed recently. Her mean gradient is 21 mmHg. Her ejection fraction is preserved at 60%. Her cardiac catheterization today did not demonstrate a significant gradient more than 20 mmHg. I would not recommend that we make any changes at this p articular time I do not think that she is a candidate for aortic valve replacement at this time. (4) Essential hypertension: PLAN: Her blood pressure appears to be under good control on the current medical therapy I would not recommend we make any changes at this particular time. (5) Atrial fibrillation with RVR: PLAN: She appears to be maintaining sinus rhythm at this time. I would recommend that we hold her Eliquis until she is done with outpatient catheterization PCI procedure. Thank you for allowing me to participate in the care of your patient. Please don't hesitate to call if any issues arise.
[2021-03-16] MEDS: Insulin Lispro 100 UNIT/ML INSULN.PEN 20 UNIT SC (17:07)
[2021-03-16] MEDS: Insulin Lispro 100 UNIT/ML INSULN.PEN SC ×2 (17:07→21:22)
[2021-03-16] MEDS: 0.9% Saline Lock 10 ML Syringe IV ×2 (17:07→21:32)
[2021-03-16] MEDS: Furosemide 40 MG Tablet PO (17:08)
[2021-03-16 17:21] LABS: Bedside Glucose 193 mg/dL (70-110)
[2021-03-16] MEDS: Atorvastatin Calcium 20 MG Tablet PO (21:23)
[2021-03-16 22:56] LABS: Bedside Glucose 297 mg/dL (70-110)
[2021-03-17] VITALS (8 sets, daily range): BP systolic 120–133; BP diastolic 59–80; PULSE 49–66; RESP 16–18; TEMP 36.2–36.4; O2SAT 87–94
[2021-03-17 07:30] LABS: Bedside Glucose 133 mg/dL (70-110)
[2021-03-17] MEDS: Aspirin 81 MG TAB.CHEW PO (07:43)
--- NOTE | 2021-03-17 07:46 | PN.CARD_ITS ---
Subjective Subjective Patient seen and evaluated. Appears to be better at this morning. Still sleeping in a recliner. Objective Data Vital Signs: Vital Signs Temp Pulse Resp BP Pulse Ox 97.5 F L 49 L 16 133/60 H 94 03/17/21 03:00 03/17/21 06:35 03/17/21 03:00 03/17/21 03:00 03/17/21 03:10 Oxygen Flow Rate (L/min) 1 Oxygen Delivery Method Room Air Weight: 256 lb 13.416 oz Body Mass Index (BMI) 46.7 Intake & Output: Intake and Output for Last 24 Hours 03/15/21 03/16/21 03/17/21 23:59 23:59 23:59 Intake Total 780 / 780 Output Total 0 / 0 850 / 850 Balance 780 / 780 -850 / -850 Lab / Micro Data Result Diagrams: 03/16/21 05:40 03/16/21 05:40 Labs: Laboratory Results - last 24 hr 03/16/21 11:26: POC Glucose 190 H 03/16/21 15:42: POC Glucose 201 H 03/16/21 17:06: POC Glucose 193 H 03/16/21 21:21: POC Glucose 297 H 03/17/21 07:24: POC Glucose 133 H Cardiology Labs/Tests Rhythm: EKG: ECHO: Stress Test: Cardiac Cath: PCI: CT Surgery: Holter monitor: EPS: PPM: CXR: Chest CT Scan: Physical Exam Const alert, oriented x3 and no apparent distress General Appearance: cooperative HEENT hearing grossly normal bilaterally Head and Scalp: atraumatic Eyes EOMs intact bilaterally Neck General: normal visual inspection Chest inspection of chest normal and palpation of chest normal Resp normal respiratory effort Auscultation: diminished lung sounds Cardio regular rate, regular rhythm, S1 normal heart sound and S2 normal heart sound Jugular Venous Distention: JVD GI normal to inspection, nondistended, normoactive bowel sounds Extremity normal capillary refill and no pedal edema Peripheral Pulses: Yes pulses 2+ throughout and femoral pulses present Skin no rashes or lesions noted Neuro oriented x3 and CN's II-XII intact bilaterally Psych Appearance: grossly normal and appropriate Assessment & Plan Assessment/Plan (1) Diastolic congestive heart failure: PLAN: She does have evidence of diastolic heart failure. Her recent ejection fraction was preserved. * Will continue with diuretics for today IV and then switch to p.o. * It will be good to attempt to ambulate her and see how she does before discharge (2) History of coronary artery bypass graft: PLAN: She is status post coronary artery bypass surgery with a left internal mammary artery to the left anterior descending artery. * Cardiac catheterization today demonstrated the following: Patent left internal mammary artery to the left anterior descending artery. Left anterior descending artery totally occluded in the midsegment. Left circumflex artery which is severely calcified in multiple areas and does not appear to be significantly changed from prior to bypass surgery. Right coronary artery which is totally occluded. Preserved left ventricular systolic function. Based on the above angiographic findings I would recommend outpatient evaluation for coronary rotablation of the left circumflex artery. This will be arranged through my office. She will be contacted from [place]. (3) Aortic stenosis: QUALIFIERS: Cardiac valve disease etiology: etiology unspecified Qualified Code(s): I35.0 - Nonrheumatic aortic (valve) stenosis PLAN: She does have moderate aortic stenosis from an echocardiogram performed recently. Her mean gradient is 21 mmHg. Her ejection fraction is preserved at 60%. Her cardiac catheterization today did not demonstrate a significant gradient more than 20 mmHg. I would not recommend that we make any changes at this particular time I do not think that she is a candidate for aortic valve replacement at this time. (4) Essential hypertension: PLAN: Her blood pressure appears to be under good control on the current medical therapy I would not recommend we make any changes at this particular time. (5) Atrial fibrillation with RVR: PLAN: She appears to be maintaining sinus rhythm at this time. I would recommend that we hold her Eliquis until she is done with outpatient catheterization PCI procedure. Thank you for allowing me to participate in the care of your patient. Please don't hesitate to call if any issues arise.
[2021-03-17] MEDS: Insulin Lispro 100 UNIT/ML INSULN.PEN 20 UNIT SC ×2 (08:09→12:30)
[2021-03-17 08:53] LABS: Anion Gap 4 (5-15); BUN 44 mg/dL (7-18); BUN/Creat Ratio 33.6 RATIO (10-20); Calcium,Total 9.7 mg/dL (8.5-10.1); Chloride 104 mmol/L (98-107); Creatinine, Serum 1.31 mg/dL (0.55-1.02); EST Glomerular Filtration Rate 43 mL/min (>60); Est Glom Filt Rate - Afr Amer 52 mL/min (>60); Estimated Creatinine Clearance 32.96 ml/min; Glucose 129 mg/dL (74-106); Sodium Level 137 mmol/L (136-145)
[2021-03-17] MEDS: Fluticasone 0.05% 1 SPRAY NASAL.SRY 2 SPRAY NASAL (08:54)
[2021-03-17] MEDS: Furosemide 40 MG Tablet PO (08:55)
--- NOTE | 2021-03-17 10:40 | CASEMGMT ---
Addendum entered by Elissa Hastings 03/17/21 12:13: Per palliative, pt has concerns with going home. This RN CM back to room and pt states no need for any HHC/OP therapy but does have concerns with what cardiology f/u in [place] will be like and her decisions after speaking with them. Pt states she makes over $4000/month and does not qualify for medicaid thus she would not qualify for other resources based on income level. Pt aware to discuss any further major home equipment needs with PCP as they can f/u with her on that, voices understanding. Pt voices no further questions/concerns/needs. Pt's etank already delivered from [facility]. Palliative will follow pt at home. Uma ESPINOZA CM Addendum entered by Elissa Hastings 03/17/21 11:23: Pt did inquire about getting walk in tub/shower set up and pt aware she would need to f/u with PCP in regards to this, voices understanding. Uma ESPINOZA CM Original Note: Per therapy notes, pt does not need any further therapy. Per Sirena ESPINOZA, pt qualifies for home oxygen 2L w/ exertion and pt states no preference for DME company. Referral faxed to [facility] and call to [facility] to notify of referral and pt probable discharge today, Ghazal voices understanding. Pt voices no further questions/concerns/needs. Uma ESPINOZA CM
--- NOTE | 2021-03-17 11:24 | PCM.CONS.P ---
Assessment & Plan Assessment/Plan (1) Diastolic congestive heart failure: (2) Acute exacerbation of CHF (congestive heart failure): QUALIFIERS: Heart failure type: diastolic Qualified Code(s): I50.33 - Acute on chronic diastolic (congestive) heart failure (3) Atrial fibrillation with RVR: (4) Dyspnea: (5) Aortic stenosis: QUALIFIERS: Cardiac valve disease etiology: etiology unspecified Qualified Code(s): I35.0 - Nonrheumatic aortic (valve) stenosis (6) History of coronary artery bypass graft: PLAN: ABE SARAVIA, is a 65 F who was referred to [facility] for management of symptoms related to diastolic heart failure and aortic stenosis. Patient could be hospice or palliative appropriate. Plan is as follows: 1) Dyspnea/aortic stenosis: To go to [place] cardiology for evaluation for coronary rotablation of the left circumflex artery. To decide at that point if she would like to go to hospice or sign with Palliative care. Concerned with quality of life and is tired of hospitalizations. Palliative card left with patient if she chooses to call. Aware that Liaison will be reaching out after discharge. 2) CHF/afib: Eliquis on hold until [place] appointment/ Diuretics and home O2 as ordered. Monitor weights and monitor fluids and low sodium diet. 3) fall risk; encourage use of walker for mobility. Was not ordered on home PT Thank you for the opportunity to participate in this patient's care, please do not hesitate to contact [facility] with any further questions or concerns. Palliative office [phone] Greater than 50% of F2F visit dedicated to education and counseling of palliative care services versus hospice services and comfort measures and quality of life TIME IN: 11:00 AM TIME OUT: 12:35 PM HPI Consult Data Date of Consult: 03/17/21 HPI Narrative HPI Narrative: ABE SARAVIA, is a 65 F who was referred to [facility] for management of symptoms related to diastolic heart failure and aortic stenosis. Past medical history listed below: She reported to the [facility] ER with progressive shortness of breath, bilateral edema. She had a Coronary artery bipass graft on 06/26/19 in [place]. Patient has worsening dypsnea as well as orthopnea and sleeps in chair upright. ED work up revealed CBC with WC 7.5, hemoglobin 10.6, platelet 113, CMP with BUN/creatinine 23/1.52, glucose 162, AST/LT 48/23, BNP 639, high-sensitivity troponin 26, urinalysis not marked appearing, EKG was sinus rhythm with no acute evidence of ischemia. Was given IV lasix then admitted to PCU for cardiac telemetry. Strict I7Os, daily weights, ELAN wraps to extremities and cardiology referral. Chest X-ray revealed Interstitial edema or infiltrate. Eliquis was placed on hold and had a cardiac cath on 03/16/21 that showed mild and distal left circumflex artery lesion in the codominant vessel, totally occluded mid right coronary artery stenosis, patent WOODS to the LAD, mild arotic stenosis. ECHO from December 2020 shows preserved EF of 60%, normal LV size. Stage 2 Diastolic dysfunction, moderate aortic stenosis with focal aortic valve calcification. Dr. Feliciano recommends outpatient eval for coronary rotablation of the left circumflex artery. Office to set up with [facility] to contact patient. Patient is able to ambulate with walker with SBA of 25 feet and PT was not recommended at discharge. Pt qualifies for home oxygen 2L w/ exertion and will be ordered at discharge. Patient does have a walker but uses a cane in the trailer. Has requested a walking tub/shower due history of falls including in the shower. Currently has a shower bench and one grab bar. Seen today in recliner in room in PCU. Obese, pleasant and in no distress. O2 per nasal cannula at 2 liters. No conversational dyspnea noted. Appears comfortable. +1 LE edema left >right. ELAN wraps in place. Voices concern about what [facility] is going to say and how much quality of life she really has. Extensive discussion of hospice versus palliative and differences between the two. Patient has no children, only nieces and nephews for transportation to appointments. She feels that she is bothering them with her busy lives. She had a baby with current male partner in the 80s that lived 3 months and due to multiple defects. Patient has lived with this long-term male partner for over 30 years. Tends to not refer to him as that, but states that she loves him. They live in a trailer with 5 steps to entry that she has to take rests between vehicle to steps, from steps to the front door. Expresses concern about going back home to live with this bipolar partner. He depends on me for his livelihood. States that he is a smoker and not the best environment. Realizes that she needs to make decisions that are best for her. Will consider Palliative or hospice based on appointment with [facility]. [facility] Medical History Aortic stenosis Atherosclerosis of coronary artery of [place] heart without angina pectoris Atrial fibrillation with RVR Breast cancer Cervical dystonia CKD (chronic kidney disease), stage III Congestive heart failure (CHF) Diabetes Diabetic foot infection Essential hypertension History of anxiety History of diabetic retinopathy History of CA (myocardial infarction) History of migraine headaches History of vitamin D deficiency Hyperlipidemia Hypertension Hyperthyroidism Hypothyroidism Irregular heart beat Neuropathy Obesity Osteomyelitis Rheumatoid arthritis Sleep apnea Staph aureus infection Type 2 diabetes mellitus without complication Home Medications levothyroxine 100 mcg PO DAILY 10/17/13 [History Last Taken 03/12/21 09:00] rosuvastatin 10 mg PO DAILY 12/13/13 [History Last Taken 03/12/21 22:00] epinephrine 0.3 mg/0.3 mL injection, auto-injector 0.3 ml IM ONCE PRN 05/31/19 [History Last Taken Unknown] apixaban 5 mg tablet 5 mg PO BID 08/21/19 [History Last Taken 03/12/21 09:00] aspirin 81 mg chewable tablet 81 mg PO DAILY 08/21/19 [History Last Taken 03/12/21 09:00] insulin glargine 100 unit/mL (3 mL) subcutaneous pen 40 unit SC DAILY ml 08/21/19 [History Last Taken 03/12/21 08:00] insulin lispro 100 unit/mL subcutaneous pen 20 unit SC QAC ml 08/21/19 [History Last Taken Unknown] metoprolol tartrate 50 mg tablet 75 mg PO Q12H tab 08/21/19 [History Last Taken 03/12/21 09:00] polyethylene glycol 3350 17 gram oral powder packet 17 g PO DAILY PRN 08/21/19 [History Last Taken Unknown] amlodipine 2.5 mg tablet 5 mg PO DAILY #30 tab 01/16/21 [Rx Last Taken 03/12/21 09:00] furosemide 40 mg PO BIDLX #60 tab 03/17/21 [Rx Last Taken Unknown] Allergy/AdvReac Type Severity Reaction Status Date / Time bee pollen Allergy Anaphylaxis Verified 03/12/21 19:13 Family History Mother CAD (coronary artery disease) Diabetes Father CAD (coronary artery disease) Sister CAD (coronary artery disease) COPD (chronic obstructive pulmonary disease) Brother CAD (coronary artery disease) CABG X 3 Surgical History History of section History of cholecystectomy History of colonoscopy (06/15/17) History of coronary artery bypass graft (06/26/19) History of esophagogastroduodenoscopy (EGD) (06/15/17) History of left heart catheterization (03/16/21) History of loop recorder (07/06/19) History of partial mastectomy of right breast (~2009) History of repair of ACL Status post amputation of toe of left foot (~2015) Social History Smoking Status: Never smoker second hand exposure: Yes alcohol intake: current alcohol intake frequency: holidays/special occasions only Alcohol type: wine substance use type: does not use caffeine: Yes Type: coffee Number of servings: 2 ROS Cardiovascular Cardiovascular: Reports dyspnea on exertion and fatigue; Denies chest pain at rest, chest pain with activity, dyspnea at rest, lightheadedness, nausea or numbness in extremities Respiratory/Chest Respiratory/Chest: Reports dyspnea on exertion; Denies inability to speak or pain on inspiration Gastrointestinal Gastrointestinal: Denies abdominal pain, bloating, change in bowel habits or constipation Genitourinary Genitourinary: Denies burning urination, change in urinary stream or difficulty urinating Musculoskeletal Musculoskeletal: Reports back pain; Denies difficulty walking or extremity pain Neurologic Neurologic: Denies abnormal movements, abnormal speech or behavior changes Physical Exam Const alert, oriented x3 and no apparent distress Constitutional Narrative: Obese General Appearance: cooperative and comfortable HEENT normocephalic and head/scalp atraumatic Eyes EOM: EOM abnormal Neck full ROM and no JVD Chest Chest: symmetrical chest wall rise Resp normal respiratory effort Auscultation: crackles diffuse (fine expiratory crackles in posterior baca) Cardio regular rate, regular rhythm, S1 normal heart sound and S2 normal heart sound Heart Sounds: murmur systolic GI Auscultation: normoactive bowel sounds Palpation: soft Extremity Extremity Narrative: edema +1 left extremity> right. ELAN wraps in place bilaterally
--- NOTE | 2021-03-17 11:42 | PCM.DC ---
Discharge Instructions Diet Discharge Diet: Low fat / Low cholesterol, 8 Cup Fluid Restriction and 2000 mg Sodium Diet Activity Discharge Activity: Return to Normal Activity Dressing / Incision Call your doctor if you observe: Shortness of breath, Dizziness and Chest pain Follow Up Care Test Results: Test results from this visit will be discussed in further detail at your follow-up appointment, if applicable. Discharge Plan Admission Admit Date/Time: 03/13/21 09:51 Primary Reason for Your Visit: Heart failure Attending Provider: Shavonne Bazzi Primary Care Provider: Tom Jeffery Consulting Providers: Jimbo Feliciano Instructions Additional Instructions / Restrictions: Palliative to follow at discharge. Discharge Orders/Prescriptions Prescriptions: New furosemide 40 mg Tablet 40 mg PO BIDLX Qty: 60 RF: 0 Continued epinephrine [EpiPen] 0.3 mg/0.3 mL auto-injector 0.3 ml IM ONCE PRN (Reason: allergy) RF: 0 aspirin 81 mg tablet,chewable 81 mg PO DAILY RF: 0 insulin glargine 100 unit/mL (3 mL) insulin pen 40 unit SC DAILY RF: 0 insulin lispro 100 unit/mL insulin pen 20 unit SC QAC RF: 0 metoprolol tartrate 50 mg tablet 75 mg PO Q12H RF: 0 polyethylene glycol 3350 17 gram powder in packet 17 g PO DAILY PRN (Reason: Constipation) RF: 0 amlodipine 2.5 mg tablet 5 mg PO DAILY Qty: 30 RF: 11 levothyroxine 100 MCG tablet 100 mcg PO DAILY RF: 0 rosuvastatin 10 MG tablet 10 mg PO DAILY RF: 0 Held apixaban 5 mg tablet 5 mg PO BID RF: 0 Hold Instructions: Resume on 04/14/21. Hold until [place] follow up Discontinued furosemide 20 mg tablet 20 mg PO BID RF: 0 Referrals / Follow Up: Cardiology, [place] [Other] - See Referral Note ([place] will contact you with an appointment. ) Tom Jeffery MD [Primary Care Provider] - In 1 Week (Please call to setup a hospital follow up appointment.) Elijah Zapata NP, COMMUNITY INTEGRATION SPECIALIST-C [Nurse Practitioner] - Within 2 Weeks Disposition Disposition (needs filled in before D/C Order can be placed): Home, Self Care
[2021-03-17 11:56] LABS: Bedside Glucose 178 mg/dL (70-110)
--- NOTE | 2021-03-17 11:56 | DS.PCM_ITS ---
Documented by User: Ivon Lema NP, ENVIRONMENTAL CONSULTANT-C 03/17/21 12:15 Providers Date of Admission: 03/13/21 Date of Discharge: 03/17/21 Primary Care Physician: Dr. Tom Jeffery MD Consultations 03/13/21 00:05 Consult: Cardiology Routine Consulting Provider: Jimbo Feliciano Reason for Consult: CHF EMERGENT Consult: No MD Notified: Yes Date Notified: 03/12/21 Time Notified: 23:16 Method of Notification: Provider Initiated Reason For Visit: CHF EXACERBATION Diagnosis Discharge Diagnosis (1) Diastolic congestive heart failure: Status: Deleted Code(s): I50.30 - Unspecified diastolic (congestive) heart failure (2) History of coronary artery bypass graft: Status: Deleted Code(s): Z95.1 - Presence of aortocoronary bypass graft (3) Aortic stenosis: Status: Deleted Code(s): I35.0 - Nonrheumatic aortic (valve) stenosis Qualifiers: Cardiac valve disease etiology: etiology unspecified Qualified Code(s): I35.0 - Nonrheumatic aortic (valve) stenosis (4) Essential hypertension: Status: Chronic Code(s): I10 - Essential (primary) hypertension (5) Atrial fibrillation with RVR: Status: Inactive Code(s): I48.91 - Unspecified atrial fibrillation Medications at Discharge Home Medications levothyroxine 100 mcg PO DAILY 10/17/13 rosuvastatin 10 mg PO DAILY 12/13/13 epinephrine 0.3 mg/0.3 mL injection, auto-injector 0.3 ml IM ONCE PRN 05/31/19 apixaban 5 mg tablet 5 mg PO BID 08/21/19 aspirin 81 mg chewable tablet 81 mg PO DAILY 08/21/19 insulin glargine 100 unit/mL (3 mL) subcutaneous pen 40 unit SC DAILY ml 08/21/19 insulin lispro 100 unit/mL subcutaneous pen 20 unit SC QAC ml 08/21/19 metoprolol tartrate 50 mg tablet 75 mg PO Q12H tab 08/21/19 polyethylene glycol 3350 17 gram oral powder packet 17 g PO DAILY PRN 08/21/19 amlodipine 2.5 mg tablet 5 mg PO DAILY #30 tab 01/16/21 furosemide 40 mg PO BIDLX #60 tab 03/17/21 Hospital Course Operations None Procedures Cardiac catheterization Summary of Care Provided Minutes Spent on Discharge: 35 Hospital Course: Patient is a 65-year-old female admitted 03/12/2021 due to shortness of breath. 1. Acute on chronic heart failure with preserved ejection fraction, associated acute hypoxic respiratory insufficiency-echocardiogram 12/26/2020 demonstrated an EF of 60%, stage II diastolic dysfunction, moderate aortic stenosis. Transitioned from IV Lasix to oral Lasix 40 mg twice daily. Cardiology consulted during admission. Home oxygen testing completed prior to discharge and patient will require 2 L supplemental oxygen with exertion. She is ambulatory in the home. Follow-up with PCP in 1 week. Follow-up with cardiology in 2 weeks. 2. Elevated troponin-patient underwent heart cath which demonstrated left anterior descending artery totally occluded in the midsegment, left circumflex artery which is severely calcified multiple areas, right coronary artery totally occluded. Cardiology recommending evaluation of coronary rotablation of left circumflex artery, she will be contacted by [place] cardiology. 3. CAD with history of CABG-continue medical management. Referral for coronary rotablation as noted above. 4. Valvular heart disease with moderate aortic stenosis-recent echo 12/26/2020 demonstrated moderate aortic stenosis. Cardiology does not recommend further intervention regarding valve at this time. 5. Paroxysmal atrial fibrillation-Continue metoprolol. Continue to hold Eliquis at discharge pending follow-up with [place] cardiology/repeat heart cath/intervention. 6. Type 2 diabetes mellitus-continue home insulin regimen. 7. Chronic normocytic anemia-trend CBC 8. Hypertension-stable, continue metoprolol, amlodipine. 9. Hyperlipidemia-continue statin. 10. KAVITA-continue CPAP 11. Hypothyroidism-continue Synthroid regimen. 12. Anxiety/depression-not on regimen. 13. Morbid obesity-encouraged diet and lifestyle modifications. 14. Chronic kidney disease stage IIIb-at baseline, trend BMP. Physical Exam Const alert, oriented x3 and no apparent distress Orientation / Consciousness: awake, oriented to person, oriented to place and oriented to time HEENT normocephalic and moist oral mucous membranes Eyes PERRL, EOMs intact bilaterally and conjunctivae normal Neck no lymphadenopathy Resp clear to auscultation bilaterally Auscultation: diminished lung sounds Cardio regular rate, regular rhythm and no murmurs Peripheral Pulses: pulses 2+ throughout GI normal to inspection, nondistended, normoactive bowel sounds, non-tender and non-distended Extremity normal to inspection General Extremity: edema bilateral lower extremity Details: mild (Ralph wraps in place) Skin no rashes or lesions noted Lesions: no lesions Rashes: no rashes Trauma: no lacerations or abrasions Neuro CN's II-XII intact bilaterally, no focal motor deficits, no sensory deficits noted and deep tendon reflexes 2+ bilaterally Psych mental status grossly normal and affect normal Patient seen and examined prior to discharge. Physical assessment as noted above. Patient is stable for discharge with follow up recommendations as noted above. Palliative medicine to follow at discharge. This patient was seen by GILLES Roberson under the supervision of Dr. Bazzi. Weight / BMI Weight Weight: 256 lb 13.416 oz Body Mass Index (BMI) 46.7 ABG / Lab / Microbiology Data Result Diagrams: 03/16/21 05:40 03/17/21 06:10 Laboratory: Laboratory Results - last 24 hr 03/16/21 15:42: POC Glucose 201 H 03/16/21 17:06: POC Glucose 193 H 03/16/21 21:21: POC Glucose 297 H 03/17/21 06:10: Sodium 137, Potassium 4.0, Chloride 104, Carbon Dioxide 29.0, Anion Gap 4 L, BUN 44 H, Creatinine 1.31 H, Estim Creat Clear Calc 32.96, Est GFR (MDRD) Af Amer 52 L, Est GFR (MDRD) Non-Af 43 L, BUN/Creatinine Ratio 33.6 H , Glucose 129 H, Calcium 9.7 03/17/21 07:24: POC Glucose 133 H 03/17/21 11:49: POC Glucose 178 H Microbiology: Microbiology 03/13/21 01:20 Nasal Secretion SARS-CoV-2 Antigen (Rapid) - Final D/C Instructions Discharge Diet: Low fat / Low cholesterol, 8 Cup Fluid Restriction and 2000 mg Sodium Diet Call your doctor if you observe: Shortness of breath, Dizziness and Chest pain Meaningful Use Info Meaningful Use Diagnoses (Choose all that apply): CHF CHF RALPH/ARB ordered at discharge?: No Reason RALPH/ARB not ordered?: Worsening renal disease Documented LVEF (%): 60 Discharge Plan Admission Admit Date/Time: 03/13/21 09:51 Primary Reason for Your Visit: Heart failure Attending Provider: Shavonne Bazzi Primary Care Provider: Tom Jeffery Consulting Providers: Jimbo Feliciano Instructions Additional Instructions / Restrictions: Palliative to follow at discharge. Discharge Orders/Prescriptions Prescriptions: New furosemide 40 mg Tablet 40 mg PO BIDLX Qty: 60 RF: 0 Continued epinephrine [EpiPen] 0.3 mg/0.3 mL auto-injector 0.3 ml IM ONCE PRN (Reason: allergy) RF: 0 aspirin 81 mg tablet,chewable 81 mg PO DAILY RF: 0 insulin glargine 100 unit/mL (3 mL) insulin pen 40 unit SC DAILY RF: 0 insulin lispro 100 unit/mL insulin pen 20 unit SC QAC RF: 0 metoprolol tartrate 50 mg tablet 75 mg PO Q12H RF: 0 polyethylene glycol 3350 17 gram powder in packet 17 g PO DAILY PRN (Reason: Constipation) RF: 0 amlodipine 2.5 mg tablet 5 mg PO DAILY Qty: 30 RF: 11 levothyroxine 100 MCG tablet 100 mcg PO DAILY RF: 0 rosuvastatin 10 MG tablet 10 mg PO DAILY RF: 0 Held apixaban 5 mg tablet 5 mg PO BID RF: 0 Hold Instructions: Resume on 04/14/21. Hold until [place] follow up Discontinued furosemide 20 mg tablet 20 mg PO BID RF: 0 Referrals / Follow Up: Cardiology, [place] [Other] - See Referral Note ([place] will contact you with an appointment. ) Tom Jeffery MD [Primary Care Provider] - In 1 Week (Please call to setup a hospital follow up appointment.) Elijah Zapata NP, ENVIRONMENTAL CONSULTANT-C [Nurse Practitioner] - 03/31/21 3:30 pm Disposition Disposition (needs filled in before D/C Order can be placed): Home, Self Care Documented by User: Dr. Shavonne Bazzi MD 03/17/21 15:55 Providers Date of Admission: 03/13/21 Reason For Visit: CHF EXACERBATION Medications at Discharge Home Medications levothyroxine 100 mcg PO DAILY 10/17/13 rosuvastatin 10 mg PO DAILY 12/13/13 epinephrine 0.3 mg/0.3 mL injection, auto-injector 0.3 ml IM ONCE PRN 05/31/19 apixaban 5 mg tablet 5 mg PO BID 08/21/19 aspirin 81 mg chewable tablet 81 mg PO DAILY 08/21/19 insulin glargine 100 unit/mL (3 mL) subcutaneous pen 40 unit SC DAILY ml 08/21/19 insulin lispro 100 unit/mL subcutaneous pen 20 unit SC QAC ml 08/21/19 metoprolol tartrate 50 mg tablet 75 mg PO Q12H tab 08/21/19 polyethylene glycol 3350 17 gram oral powder packet 17 g PO DAILY PRN 08/21/19 amlodipine 2.5 mg tablet 5 mg PO DAILY #30 tab 01/16/21 furosemide 40 mg PO BIDLX #60 tab 03/17/21 ABG / Lab / Microbiology Data Result Diagrams: 03/16/21 05:40 03/17/21 06:10 Discharge Plan Admission Admit Date/Time: 03/13/21 09:51 Primary Reason for Your Visit: Heart failure Attending Provider: Shavonne Bazzi Primary Care Provider: Tom Jeffery Consulting Providers: Jimbo Feliciano Instructions Additional Instructions / Restrictions: Palliative to follow at discharge. Discharge Orders/Prescriptions Prescriptions: New furosemide 40 mg Tablet 40 mg PO BIDLX Qty: 60 RF: 0 Continued epinephrine [EpiPen] 0.3 mg/0.3 mL auto-injector 0.3 ml IM ONCE PRN (Reason: allergy) RF: 0 aspirin 81 mg tablet,chewable 81 mg PO DAILY RF: 0 insulin glargine 100 unit/mL (3 mL) insulin pen 40 unit SC DAILY RF: 0 insulin lispro 100 unit/mL insulin pen 20 unit SC QAC RF: 0 metoprolol tartrate 50 mg tablet 75 mg PO Q12H RF: 0 polyethylene glycol 3350 17 gram powder in packet 17 g PO DAILY PRN (Reason: Constipation) RF: 0 amlodipine 2.5 mg tablet 5 mg PO DAILY Qty: 30 RF: 11 levothyroxine 100 MCG tablet 100 mcg PO DAILY RF: 0 rosuvastatin 10 MG tablet 10 mg PO DAILY RF: 0 Held apixaban 5 mg tablet 5 mg PO BID RF: 0 Hold Instructions: Resume on 04/14/21. Hold until [place] follow up Discontinued furosemide 20 mg tablet 20 mg PO BID RF: 0 Referrals / Follow Up: Cardiology, [place] [Other] - See Referral Note ([place] will contact you with an appointment. ) Tom Jeffery MD [Primary Care Provider] - In 1 Week (Please call to setup a hospital follow up appointment.) Elijah Zapata ENVIRONMENTAL CONSULTANT, ENVIRONMENTAL CONSULTANT-C [Nurse Practitioner] - 03/31/21 3:30 pm Disposition Disposition (needs filled in before D/C Order can be placed): Home, Self Care Charges/Coding Addendum Addendum: This patient was seen in conjunction with Ivon Lema. I have independently interviewed and examined the patient and reviewed pertinent historical, laboratory, and other data. I have reviewed her note and concur with her documentation 55-year-old female multiple comorbidities significant for CAD who comes in with progressive shortness of breath. Patient was found to be in acute exacerbation of heart failure with preserved EF. Her troponins were elevated. Cardiology was consulted. Patient underwent cardiac catheterization on 03/16/21. Findings were significant for severely calcified mid and distal left circumflex artery lesion in the codominant vessel, totally occluded mid right coronary artery stenosis, patent WOODS to the LAD, mild aortic stenosis. Cardiology plan to send patient for rotablation to the mid circumflex artery. Patient was monitored overnight with no acute events. She refused home health. Physical Exam: Gen: Comfortable, not pale, not jaundiced CVS:HS I +II, regular, no murmurs RESP: Diminished at lung bases GI: BS present and normal, soft, nontender, no palpable organs EXT:Bilateral leg edema +1-2 Visit Charges Inpatient E&M: 76838 Disch Hosp
--- NOTE | 2021-03-17 12:12 | PHA.DC.MR ---
Pharmacy Service has performed discharge medication reconciliation for this patient. The patient's discharge medication list was reviewed for discrepancies and discrepancies were resolved. Home Medications levothyroxine 100 mcg PO DAILY 10/17/13 rosuvastatin 10 mg PO DAILY 12/13/13 epinephrine 0.3 mg/0.3 mL injection, auto-injector 0.3 ml IM ONCE PRN 05/31/19 apixaban 5 mg tablet 5 mg PO BID 08/21/19 aspirin 81 mg chewable tablet 81 mg PO DAILY 08/21/19 insulin glargine 100 unit/mL (3 mL) subcutaneous pen 40 unit SC DAILY ml 08/21/19 insulin lispro 100 unit/mL subcutaneous pen 20 unit SC QAC ml 08/21/19 metoprolol tartrate 50 mg tablet 75 mg PO Q12H tab 08/21/19 polyethylene glycol 3350 17 gram oral powder packet 17 g PO DAILY PRN 08/21/19 amlodipine 2.5 mg tablet 5 mg PO DAILY #30 tab 01/16/21 furosemide 40 mg PO BIDLX #60 tab 03/17/21
[2021-03-17] MEDS: Insulin Lispro 100 UNIT/ML INSULN.PEN SC (12:31)
--- NOTE | 2021-03-17 13:20 | CHAPLAIN ---
Type of Pastoral Visit ___ Initial Visit ___ Follow-up Visit ___ On-call Visit ___ General Patient Visit ___ Spiritual Assessment ___ Family Conference ___ Bereavement ___ Rapid Response ___ Code Blue ___ Other (describe below) Pastoral Care Referral From ___ Patient ___ Family ___ Nurse ___ Physician ___ Vice Principal ___ Mental Hygiene Consultant ___ Other (describe below) Sacrament/Intervention ___ Active listening ___ Anointing ___ Jainism ___ Bereavement ___ Communion ___ Shaniqua exploration ___ ___ Life review ___ Prayer ___ Reconciliation ___ Sacrament of Sick ___ Supportive presence ___ Wedding ___ Other (describe below) Pastoral Comments three attempts made this day to visit patient and each time the patient was busy;
--- NOTE | 2021-03-18 15:08 | CASEMGMT ---
OLGA MARMOLEJO Discharge Follow-Up Phone Call. Lace: 13 Strata: 3 Discharge Date: 03/17/21 Adm Dx: CHF Exac Attempted discharge f/u phone call. No answer. Recording w/pt's name identified came on. VM left for return call to RN FRANCIE if there are any questions or concerns. Phone number provided. Patricia JOHNSON RN CM
== END 2021-03-17 17:54 | disposition home or self-care (01) | DRG 286 ==
LOC: ED 23:12 → PCU 03-13 02:12
PROVIDERS: Internal Medicine; Nurse Practitioner Family; Admitting Provider Family Medicine; Emergency Provider Emergency Medicine; PCP Family Medicine; Visit Provider Internal Medicine
DX: I13.0 Hypertensive heart and chronic kidney disease with heart failure and stage 1 through stage 4 chronic kidney disease, or unspecified chronic kidney disease (principal); I50.33 Acute on chronic diastolic (congestive) heart failure; Z68.42 Body mass index [BMI] 45.0-49.9, adult; I25.82 Chronic total occlusion of coronary artery; I25.10 Atherosclerotic heart disease of native coronary artery without angina pectoris; R09.02 Hypoxemia; R06.89 Other abnormalities of breathing; Z95.1 Presence of aortocoronary bypass graft; I35.0 Nonrheumatic aortic (valve) stenosis; I48.0 Paroxysmal atrial fibrillation; E11.40 Type 2 diabetes mellitus with diabetic neuropathy, unspecified; D64.9 Anemia, unspecified; E78.5 Hyperlipidemia, unspecified; G47.33 Obstructive sleep apnea (adult) (pediatric); E03.9 Hypothyroidism, unspecified; E66.01 Morbid (severe) obesity due to excess calories; E11.22 Type 2 diabetes mellitus with diabetic chronic kidney disease; N18.32 Chronic kidney disease, stage 3b; D69.6 Thrombocytopenia, unspecified; F41.9 Anxiety disorder, unspecified; F32.9 Major depressive disorder, single episode, unspecified; Z66 Do not resuscitate; Z79.4 Long term (current) use of insulin; Z79.02 Long term (current) use of antithrombotics/antiplatelets; Z79.899 Other long term (current) drug therapy
CPT/HCPCS: 36415; 71045; 80048; 80053; 81001; 82962; 83735; 83880; 84443; 84484; 85025; 85610; 87426; 93005; 93459; 97110; 97162; 97166; 97530; 97535; 97802; 97803; 99152; 99153; 99251; 99283; C1894; Q9967; A4216; C1760; C1769; G0463; J1940

== ENCOUNTER → 2021-05-19 14:38 | Outpatient (CLI) | payer MEDICARE, SELFPAY ==
[2021-05-19 16:08] LABS: Hemoglobin 9.8 g/dL (12.0-15.0); Mean Corp Hgb Conc 29.7 g/dL (32-36); Mean Corpuscular Hgb 27.4 pg (27.0-32.0); Mean Corpuscular Volume 92.2 fL (81-99); Mean Platelet Vol. 11.4 fl (6.2-12.0); Platelet Count 166 K/mm3 (150-450); RBC Distribution Width CV 17.2 % (11.6-14.6); RBC Distribution Width SD 57.5 fl (35.1-43.9); Red Blood Count 3.58 M/mm3 (4.2-5.4); White Blood Count 5.7 K/mm3 (4.4-11.0)
[2021-05-19 16:34] LABS: Anion Gap 8 (5-15); BUN 26 mg/dL (7-18); BUN/Creat Ratio 17.4 RATIO (10-20); Calcium,Total 9.4 mg/dL (8.5-10.1); Chloride 103 mmol/L (98-107); Creatinine, Serum 1.49 mg/dL (0.55-1.02); EST Glomerular Filtration Rate 37 mL/min (>60); Est Glom Filt Rate - Afr Amer 45 mL/min (>60); Glucose 157 mg/dL (74-106); Potassium 3.8 mmol/L (3.5-5.1); Sodium Level 138 mmol/L (136-145)
== END ==
PROVIDERS: PCP Family Medicine
DX: E11.51 Type 2 diabetes mellitus with diabetic peripheral angiopathy without gangrene (principal); I25.10 Atherosclerotic heart disease of native coronary artery without angina pectoris; I10 Essential (primary) hypertension; Z79.4 Long term (current) use of insulin
CPT/HCPCS: 36415; 80048; 85027

== ENCOUNTER → 2021-05-26 14:41 | Outpatient (CLI) | payer MEDICARE, SELFPAY ==
--- NOTE | 2021-05-26 14:50 | RAD_ITS ---
STUDY: X-RAY CHEST REASON FOR EXAM: Female, 65 years old. CHEST PAIN SOB, Cough TECHNIQUE: XR Chest 2 Views COMPARISON: 8.26.21 FINDINGS: There is interstitial accentuation of the lungs. There is no demonstrated pleural abnormality. Sternal cerclage wires are present from a prior sternotomy. There is cardiac enlargement. Normal mediastinum and david. Normal visualized pulmonary arteries. There is atherosclerotic calcification of the aortic arch with tortuosity. There is demineralization of the osseous structures. Normal visualized ribs, clavicles, and shoulders. There is no demonstrated abnormality of the visualized soft tissue structures of the upper abdomen. RAD/Chest PA and Lateral IMPRESSION: Interstitial edema or infiltrate. No change. Electronically Signed: Trevor Hammonds MD at 16:54 EST , Service support ,
[2021-05-26 17:34] LABS: Anion Gap 8 (5-15); BUN 23 mg/dL (7-18); BUN/Creat Ratio 15.2 RATIO (10-20); Calcium,Total 9.4 mg/dL (8.5-10.1); Chloride 104 mmol/L (98-107); Creatinine, Serum 1.51 mg/dL (0.55-1.02); EST Glomerular Filtration Rate 37 mL/min (>60); Est Glom Filt Rate - Afr Amer 44 mL/min (>60); Glucose 191 mg/dL (74-106); Potassium 3.8 mmol/L (3.5-5.1); Sodium Level 137 mmol/L (136-145)
[2021-05-26 17:39] LABS: BNP,B-Type NATRIURETIC PEPTIDE 1045.8 pg/mL (0-100)
== END ==
PROVIDERS: PCP Family Medicine; Referring Provider Nurse Practitioner Family; Visit Provider Nurse Practitioner Family
DX: I25.5 Ischemic cardiomyopathy (principal); R06.00 Dyspnea, unspecified; I50.31 Acute diastolic (congestive) heart failure
CPT/HCPCS: 36415; 71046; 80048; 83880

== ENCOUNTER → 2021-06-23 10:37 | Outpatient (CLI) | payer MEDICARE, SELFPAY | PROVIDERS: PCP Family Medicine; Referring Provider Nurse Practitioner Family; Visit Provider Nurse Practitioner Family | DX: I25.5 Ischemic cardiomyopathy (principal); I50.31 Acute diastolic (congestive) heart failure | CPT/HCPCS: 36415; 80048 ==

== ENCOUNTER → 2021-06-25 12:10 | Outpatient (CLI) | payer MEDICARE, SELFPAY ==
[2021-06-25 12:47] LABS: Absolute Lymphocyte Count 0.96 X10^3/uL (0.83-4.51); Absolute Neutrophil Count 3.4 X10^3/uL (2.0-7.7); Basophil# 0.06 X10^3/uL; Basophil% 1.1 % (0-1); Eosinophils% 5.7 % (0-5); Hematocrit 35.2 % (37-47); Hemoglobin 10.8 g/dL (12.0-15.0); Lymphocyte # 0.96 X10^3/ul (0.83-4.51); Lymphocyte % 18.4 % (19-41); Mean Corp Hgb Conc 30.7 g/dL (32-36); Mean Corpuscular Hgb 27.1 pg (27.0-32.0); Mean Corpuscular Volume 88.2 fL (81-99); Mean Platelet Vol. 11.8 fl (6.2-12.0); Monocyte# 0.51 X10^3/uL; Monocyte% 9.8 % (0-10); NRBC Flagged by Analyzer 0 % (0-5); Neutrophil # 3.38 X10^3/uL (2.7-7.7); Neutrophil % 64.8 % (47-70); Platelet Count 196 K/mm3 (150-450); RBC Distribution Width CV 16.2 % (11.6-14.6); RBC Distribution Width SD 52.4 fl (35.1-43.9); Red Blood Count 3.99 M/mm3 (4.2-5.4); White Blood Count 5.2 K/mm3 (4.4-11.0)
[2021-06-25 13:10] LABS: BNP,B-Type NATRIURETIC PEPTIDE 653.5 pg/mL (0-100)
[2021-06-25 13:11] LABS: Anion Gap 9 (5-15); BUN 17 mg/dL (7-18); BUN/Creat Ratio 12.4 RATIO (10-20); Calcium,Total 9.9 mg/dL (8.5-10.1); Chloride 102 mmol/L (98-107); Creatinine, Serum 1.37 mg/dL (0.55-1.02); EST Glomerular Filtration Rate 41 mL/min (>60); Est Glom Filt Rate - Afr Amer 49 mL/min (>60); Glucose 140 mg/dL (74-106); Sodium Level 138 mmol/L (136-145)
== END ==
PROVIDERS: PCP Family Medicine; Referring Provider Nurse Practitioner Family; Visit Provider Nurse Practitioner Family
DX: I25.5 Ischemic cardiomyopathy (principal); R06.00 Dyspnea, unspecified; I50.31 Acute diastolic (congestive) heart failure; I25.10 Atherosclerotic heart disease of native coronary artery without angina pectoris
CPT/HCPCS: 36415; 80048; 83880; 85025